=== PATIENT | female | born 1975 | race Caucasian/White ===

== ENCOUNTER → 2017-06-08 | Outpatient (CLI) | payer OTHER ==
[~2017-06-08] MED LIST: GADOBUTROL 10 ML VIAL IVP ONE
== END ==
LOC: FIMAGING 18:43
PROVIDERS: ATTEND Physician Assistant
DX: E23.6 Other disorders of pituitary gland (principal); J32.9 Chronic sinusitis, unspecified
CPT/HCPCS: A9585

== ENCOUNTER → 2017-07-02 | Outpatient (CLI) | payer OTHER | LOC: FIMAGING 09:49 | PROVIDERS: ATTEND Otolaryngology | DX: J32.9 Chronic sinusitis, unspecified (principal); J34.2 Deviated nasal septum; J34.89 Other specified disorders of nose and nasal sinuses; Z98.890 Other specified postprocedural states ==

== ENCOUNTER 2017-08-04 05:47 | Day surgery (SDC) | payer OTHER ==
[2017-08-04] MEDS ORDERED: LR 1,000 ML IV ONE (05:55)
[2017-08-04] MEDS ORDERED: LIDOCAINE 1% 2 ML INJ ID PRN (05:55)
[2017-08-04] MEDS ORDERED: LIDO/EPI 2%** Not for Epidural 20 ML MDV ONE (07:08)
[2017-08-04] MEDS ORDERED: ALBUTEROL 60 PUFFS/8 GM MDI IH PRN (07:08)
[2017-08-04] MEDS ORDERED: MIDAZOLAM 2 MG/2 ML VIAL IVP ONE (07:08)
[2017-08-04] MEDS ORDERED: BACITRACIN ZINC 14.2 GM OINTTUBE TP ONE (07:08)
[2017-08-04] MEDS ORDERED: METHYLENE BLUE 0.5% 50 MG/10 ML AMP ONE (07:09)
[2017-08-04] MEDS ORDERED: EPINEPHrine 30 MG/30 ML MDV (0.1 MG/0.1 ML) ONE (07:09)
--- NOTE | 2017-08-04 07:14 | PDANEPAE ---
ANE History of Present Illness 41 year old with sinus obstruction ANE Past Medical History - Cardiovascular History Hx Hypertension: No Hx Arrhythmias: No Hx Chest Pain: No Hx Coronary Artery / Peripheral Vascular Disease: No Hx CHF / Valvular Disease: No Hx Palpitations: No - Pulmonary History Hx COPD: No Hx Asthma/Reactive Airway Disease: Yes Hx Recent Upper Respiratory Infection: Yes Hx Oxygen in Use at Home: No Hx Sleep Apnea: No Sleep Apnea Screening Result - Last Documented: Negative Pulmonary History Comment: URI X 2 SINCE 03/2017. CURRENT ONE IS BEGINNING TO RESOLVE - Neurologic History Hx Cerebrovascular Accident: No Hx Seizures: No - Endocrine History Hx Diabetes: No - Renal History Hx Renal Disorders: No - Liver History Hx Hepatic Disorders: No - Neurological & Psychiatric Hx Hx Neurological and Psychiatric Disorders: Yes Neurological / Psychiatric History Comment: ANXIETY - Cancer History Hx Cancer: No - Congenital Disorder History Hx Congenital Disorders: No - GI History Hx Gastrointestinal Disorders: Yes Gastrointestinal History Comment: INTERMITTENT HEARTBURN HAS PRN RX - Other Health History Other Health History: REMVL PITUTIARY TUMOR 09/2016 RESIDUALLY HAS AFFECTED VISION. VISION WORSE ON LT. - Chronic Pain History Chronic Pain: Yes (SINUS PRESSURE FROM SCAR TISSUE) - Surgical History Prior Surgeries: REMVL PITUTARY TUMOR [facility]. BSO 11/2016. X3 ANE Review of Systems Review of Systems: Pt with mild URI sx, occ cough, nonproductive, no fever or chills - Exercise capacity METS (RN): 4 METS ANE Patient History - Allergies Allergies/Adverse Reactions: No Known Allergies Allergy (Unverified 07/29/17 10:29) - Home Medications Home medications: home medication list seen and reviewed Home Medications: Cymbalta DAILY06 07/29/17 [Last Taken 08/04/17 05:15] Proair Hfa PRN 07/29/17 [Last Taken Unknown] TOPIRAMATE BID 07/29/17 [Last Taken 08/04/17 05:15] Xanax 1 MG (*) TID 07/29/17 [Last Taken 08/04/17 05:15] - NPO status NPO Status: no food or drink >8 hours NPO Since - Liquids (Date): 08/03/17 NPO Since - Liquids (Time): 21:30 NPO Since - Solids (Date): 11/21/17 NPO Since - Solids (Time): 21:30 - Anes Hx Anes Hx: no prior problems - Smoking Hx Smoking Status: Former smoker - Alcohol Use Alcohol Use: Rarely - Family Anes Hx Family Anes Hx: none ANE Labs/Vital Signs - Vital Signs Blood Pressure: 116/83 Heart Rate: 90 Respiratory Rate: 16 O2 Sat (%): 95 Height: 162.56 cm Weight: 65.771 kg ANE Physical Exam - Airway Neck exam: FROM Mallampati Score: Class 1 Mouth exam: normal dental/mouth exam - Pulmonary Pulmonary: no respiratory distress, clear to auscultation - Cardiovascular Cardiovascular: regular rate and rhythym - ASA Status ASA Status: II ANE Anesthesia Plan Anesthesia Plan: general endotracheal anesthesia
[2017-08-04] MEDS ORDERED: ALBUTEROL 200 PUFFS/18 GM MDI IH ONE (07:15)
[2017-08-04] MEDS ORDERED: ceFAZolin 2 GM/SWFI 20 ML SYR IVP ONE (07:18)
[2017-08-04] MEDS ORDERED: ceFAZolin 2 GM/SWFI 2 GM/20 ML SYR IVP ONE (07:21)
--- NOTE | 2017-08-04 07:21 | PDHPUP ---
History & Physical Update H&P update statement: This history and physical update is based on an assessment of the patient which was completed after admission or registration (within 24 hours), but prior to the surgery/procedure. H&P update: no change in patient's condition since H&P completed
[2017-08-04] MEDS ORDERED: PROPOFOL 200 MG/20 ML VIAL ONE (07:45)
[2017-08-04] MEDS ORDERED: fentaNYL 100 MCG/2 ML INJ ONE ×3 (07:45→10:39)
[2017-08-04] MEDS ORDERED: LIDOCAINE 2% 5 ML SDV ONE (07:47)
[2017-08-04] MEDS ORDERED: ROCURONIUM 50 MG/5 ML VIAL ONE (07:47)
[2017-08-04] MEDS ORDERED: OXYMETAZOLINE 30 ML NASAL SPRAY ONE (07:52)
[2017-08-04] MEDS ORDERED: ALBUTEROL 3 ML DEYVIAL IH PRN (09:45)
[2017-08-04] MEDS ORDERED: ONDANSETRON 4 MG/2 ML VIAL IVP PRN (09:45)
[2017-08-04] MEDS ORDERED: NALOXONE HCL 0.4 MG/ML INJ IVP PRN (09:45)
--- NOTE | 2017-08-04 10:06 | POSTANESTH ---
Post Anesthetic Evaluation Cardiovascular Status: Normal, Stable Respiratory Status: Normal, Stable Level of Consciousness/Mental Status: Can Participate in Eval, Mildly Sleepy, Arousable Pain Control: Adequate, Prn Tx Ordered Nausea/Vomiting Control: Adequate, Prn Tx Ordered Complications Possibly Related to Anesthesia: None Noted
[2017-08-04] MEDS: fentaNYL 100 MCG/2 ML INJ IVP PRN ×4 (10:07→11:05)
--- NOTE | 2017-08-04 10:12 | POSTOPPROG ---
Post Op Note Date of Operation: 08/04/17 Surgeon: Marquita Green Anesthesiologist: Denis Pennington Anesthesia: GET(General Endotracheal) Pre-op Diagnosis: nasal obstruction Procedure: synechiae release R, septoplasty, SMR turbs Findings: DNS R, scarring bt septum and LNW, ITH B Inf/Abcess present in the surg proc area at time of surgery?: No EBL: Minimal Complications: none apparent
[2017-08-04 11:14] VITALS: RESP 18
[2017-08-04 11:36] VITALS: PULSE 103; TEMP 98.6
[2017-08-04 11:50] VITALS: BP 127/88; O2SAT 92
--- NOTE | 2017-08-10 04:58 | GOP ---
[f rep st] OPERATIVE REPORT DATE OF OPERATION: 08/04/2017 SURGEON: Marquita Green MD ANESTHESIA: General. PREOPERATIVE DIAGNOSIS: 1. Nasal obstruction. 2. Deviated nasal septum to the right. 3. 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 4. Previous trans-septal approach for pituitary tumor. POSTOPERATIVE DIAGNOSIS: 1. Nasal obstruction. 2. Deviated nasal septum to the right. 3. 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 4. Previous trans-septal approach for pituitary tumor. PROCEDURE PERFORMED: 1. Endoscopically assisted septoplasty. 2. Submucous resection of the inferior turbinates bilaterally. 3. Intranasal synechiae lysis on the right. FINDINGS: The patient was found to have a significantly deviated septum to the right with an adhesio n between the septum and the lateral nasal wall as well as the inferior turbinates. She also had dyllan e more adhesions between the middle turbinate and superior turbinate as well as the septum further ford periorly and posteriorly that were lysed as well. ESTIMATED BLOOD LOSS: Minimal. INDICATIONS: Ana is a very pleasant woman who has a history of a pituitary adenoma and underwent a poplexy and had an urgent transseptal approach for decompression of this almost a year ago. She stat es that since the surgery she has not been able to breathe through the right side of her nose and was having significant issues with nasal obstruction. On exam, she was found to have the above-noted fi ndings and it was felt that she would benefit from surgery. DESCRIPTION OF PROCEDURE: The patient was first seen in the preoperative area where informed consent was obtained. She was then brought back to the operating room where Anesthesia sedated and intubate d her. The bed was turned 90 degrees and she was prepped and draped in the normal fashion. I jayshree webster used a 0-degree scope to evaluate the nasal cavity bilaterally, noting the significant deviated s eptum to the right as well as the adhesions. I then used 2% lidocaine with 1:100,000 epinephrine and injected about 6 mL of this into the septum on both sides as well as the head of the inferior turbin ates and around the adhesions laterally. Once this had sufficient time to act, a 15-blade was used, after visualizing the lysis with the anterior rhinoscopy, and lysis of adhesions between the septum a nd lateral nasal wall inferiorly was performed. Once this was done, I then made a left-sided hemitra nsfixion incision with a 15-blade and then a caudal elevator was used to elevate a sub mucoperichondr ial flap to about 1 cm posterior to the bony cartilaginous junction. Once this was done, the bony ca rtilaginous junction was dislocated using a caudal instrument and then the flap was elevated on the r ight side, thereby isolating the bone more posteriorly. A double-action cutting rongeur was used to remove some of this bone and then was used under direct visualization to make an incision from posterior to anterior and superior to inferior, thereby creating a square of cartilage. This wa s released from the opposing mucoperichondrial flap on the right side and then the cartilage was christina ramiro as a whole. I did take care to leave at least a 10 mm strut caudally and dorsally. Once this wa s done, I then used a 0-degree scope through the hemitransfixion incision and held my flap elevation more posteriorly on both sides. Again, a Andrez-Cut as well as a double-action rongeur were used to rem ove anymore obstructing bone. She had a large spur to the left, more posteriorly and the caudal was used to elevate this off the flap and this was removed. She still had a small bony spur coming to th e left off the maxillary crest, so a 2 and 3 mm osteotome was used to gently remove this from the und erlying maxillary crest and this was removed as a whole. Once this was done, all instruments were re moved from the hemitransfixion incision and then the flap was reapproximated. The 0-degree scope was used on both sides to evaluate the nasal cavity. On the left she was significantly more patent and on the right she was significantly more patent, especially anteriorly. Posteriorly, she had a small synechiae between the middle turbinate and the septum as well as more posteriorly between the superio r turbinate and the septum. A sickle knife was used to release this synechiae under visualization us ing a 0-degree scope. After this was done, I could see her prior right sphenoid myotomy and a signif icant amount of secretions were suctioned from this, but otherwise it looked good. At this point, 5- 0 plain gut on a Jesus Manuel needle was used to place quilting sutures through and through the septum. A 4 -0 chromic was used to close the hemitransfixion incision in an interrupted fashion. Once this was d one, I then infractured the inferior turbinates bilaterally using a [employer]. Under direct visualizatio n with the scope, a small stab incision was made with the turbinate blade and the submucous resection of the inferior turbinates was done along the length of the inferior turbinates. The blade was christina ramiro and I did the same thing on the right side. Both turbinates were outfractured using hair assistant in strument. At the very end of the procedure a 0-degree scope was used to visualize the right posterio r aspect of the inferior turbinate on both sides and it was slightly enlarged, so suction cautery at a limited intermediate setting was used to gently cauterize the very posterior portion of the inferio r turbinates, which shrunk this down well. Once this was done, all instruments were removed. The na [place] cavity was irrigated out copiously with normal saline and suctioned clear. Two Mahoney splints, wh ich were cut to size, were placed along either side of the septum and sutured into place using a 3-0 Prolene. The patient was then turned back over to Anesthesia where she was awakened, extubated, and taken to the PACU in stable condition. There were no complications. She tolerated the procedure wel l and all instrument and pledget counts were correct. COMPLICATIONS: None. /[id number]/MODL
== END 2017-08-04 11:38 | disposition home or self-care (01) ==
LOC: FSGY 05:47
PROVIDERS: ATTEND Otolaryngology
PROC: 09TL8ZZ Resection of Nasal Turbinate, Via Natural or Artificial Opening Endoscopic (ICD-10-PCS; principal; 2017-08-04 07:15)
PROC: 09QM4ZZ Repair Nasal Septum, Percutaneous Endoscopic Approach (ICD-10-PCS; principal; 2017-08-04 07:15)
DX: J34.89 Other specified disorders of nose and nasal sinuses (principal); J34.2 Deviated nasal septum; J45.909 Unspecified asthma, uncomplicated; F32.9 Major depressive disorder, single episode, unspecified
CPT/HCPCS: J0171; J0690; J2250; J2704; J3010; Q9968

== ENCOUNTER 2017-09-16 11:15 | Inpatient (IN) | payer OTHER ==
--- NOTE | 2017-09-16 11:31 | EDPHY ---
H & P Smoking Status: Former smoker Time Seen by Provider: 09/16/17 11:29 HPI/ROS: CHIEF COMPLAINT: Headache HISTORY OF PRESENT ILLNESS: 41-year-old female with a history of pituitary tumor presents with a 2 week history of headache. She underwent a pituitary tumor resection 1 year ago. and a septoplasty on August 04, [address] Snowden. She was doing well until 2 weeks ago, when she developed a persistent and severe headache. The headache is constant, relieved somewhat by Tylenol and by lying supine. Associated with blurry vision, left greater than right. Onset of forehead swelling 2 days ago. No recent URI symptoms or fever. She was seen in the office by Dr. Snowden just prior to arrival and was sent here for MRI of the brain. REVIEW OF SYSTEMS: Constitutional: No fever, no chills ENT: No sore throat Respiratory: No cough, no shortness of breath Cardiac: No chest pain Gastrointestinal: No nausea, no vomiting, no abdominal pain Genitourinary: no dysuria Musculoskeletal: No leg pain or swelling Skin: No rash Neurological: no numbness, no weakness Psychiatric: No depression (Macy Hollis) Past Medical/Surgical History: Pituitary tumor Septoplasty (Macy Hollis) Social History: (Macy Hollis) Physical Exam: General Appearance: Alert, pleasant Eyes: Pupils equal and round, no conjunctival pallor or injection, EOMI ENT, Mouth: Mucous membranes moist Neck: Normal inspection Respiratory: Lungs are clear to auscultation Cardiovascular: Regular rate and rhythm Gastrointestinal: Abdomen is soft and nontender Neurological: Alert, oriented x3, cranial nerves II through XII intact, motor 5 /5, sensory intact to light touch, gait not assessed Skin: Warm and dry, no rash Extremities: Nontender, no pedal edema Psychiatric: Mood and affect normal (Macy Hollis S) Constitutional: Initial Vital Signs Temperature (C) 36.9 C 09/16/17 11:22 Heart Rate 98 09/16/17 11:22 Respiratory Rate 18 09/16/17 11:22 Blood Pressure 105/73 09/16/17 11:22 O2 Sat (%) 95 09/16/17 11:22 O2 Delivery Mode Room Air Allergies/Adverse Reactions: No Known Allergies Allergy (Verified 09/16/17 11:18) Home Medications: Medication Instructions Recorded ALPRAZolam [Xanax 1 MG (*)] 1 mg PO TID 09/16/17 Acetaminophen [Tylenol ES 500 mg 1,000 mg PO Q6 09/16/17 (*)] Beclomethasone Qvar 80 [Qvar 80 2 puffs IH TID 09/16/17 (*)] DULoxetine [Cymbalta 30 MG (*)] 30 mg PO DAILY 09/16/17 Herbals/Supplements -Info Only 1 ea PO DAILY 09/16/17 Topiramate [Topamax 25MG (*)] 25 mg PO BID 09/16/17 Zolpidem Tartrate [Ambien 5MG (*)] 5 mg PO HS 09/16/17 Medical Decision Making ED Course/Re-evaluation: 1500: Patient is signed out to me at change of shift by Dr. Hollis. Patient is awaiting MRI. 1545: I discussed the case with Dr. Page. The MRI shows enlarging lesion in the pituitary gland. It is now measuring 11 x 13 x 10 mm. 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 No definite hemorrhage. Dr. Snowden was paged. 16 20: I discussed case Dr. Snowden. She will discussed the case with Dr. Early from neurosurgery. Dr. Snowden called back and stated that Dr. Early did not feel the patient's headaches was secondary to the pituitary finding on MRI. Dr. Martinez felt that we should continue to work up the patient and have the patient follow up as an outpatient with Dr. Early for her MRI findings. She had no other further suggestions at this time. I went and re-evaluated the patient. I discussed the results with the patient. I answered all her questions. She had no focal neurologic deficits on exam. She continued to have a significant headache. It is noted that she received multiple doses of pain medication in the emergency department. I do not feel the patient will tolerate discharged with her ongoing headache. Patient agreed to be admitted. To further workup the patient's ongoing headache I ordered an MR venogram. I discussed this with Dr. Shawn Montiel. I subsequently discussed the case with Dr. Devine. He will admit the patient. (Zoë Tran) This patient presents with a severe and subacute headache, of 2 weeks duration. Neurologic exam is normal. MRI of the brain ordered. The patient required multiple doses of IV morphine to control her pain. MRI is pending at shift change. She may require admission for ongoing headache. I do not feel that lumbar puncture is indicated, given no recent illness, no fever and no leukocytosis. (Macy Hollis) Differential Diagnosis: My differential includes but is not limited to pituitary adenoma, hemorrhage, CVA, dissection, subarachnoid hemorrhage, subdural hematoma, epidural hematoma, sinus thrombosis (Zoë Tran) - Data Points Laboratory Results: Laboratory Results 09/16/17 11:35 09/16/17 11:35 Medications Given: Acetaminophen (Tylenol) 650 mg PO Q4HRS PRN PRN Reason: Pain, Mild/Fever, Can Take PO Stop: 03/15/18 20:40 Last Admin: 09/17/17 06:24 Dose: 650 mg Albuterol (Proventil Neb) 3 ml IH Q6HRS PRN PRN Reason: Wheezing Stop: 03/16/18 05:30 Last Admin: 09/16/17 22:30 Dose: 3 ml Alprazolam (Xanax) 1 mg PO TID CRISTINA Stop: 03/15/18 21:59 Last Admin: 09/17/17 08:35 Dose: 1 mg Beclomethasone Dipropionate (Qvar 80) 2 puffs IH TID CRISTINA Stop: 03/15/18 21:59 Last Admin: 09/17/17 07:33 Dose: 2 puffs Diphenhydramine HCl (Benadryl) 25 - 50 mg PO Q6HRS PRN PRN Reason: Itching Stop: 03/15/18 22:21 Last Admin: 09/17/17 08:32 Dose: 50 mg Duloxetine HCl (Cymbalta) 30 mg PO DAILY CRISTINA Stop: 03/16/18 08:59 Last Admin: 09/17/17 08:35 Dose: 30 mg Hydromorphone HCl (Dilaudid) 0.5 - 1 mg IVP Q4HRS PRN PRN Reason: Pain, Severe Unable to Take PO Stop: 09/26/17 20:40 Last Admin: 09/17/17 07:37 Dose: 1 mg Methocarbamol (Robaxin) 1,000 mg PO QID PRN PRN Reason: Headache Stop: 03/15/18 20:59 Last Admin: 09/17/17 02:42 Dose: 1,000 mg Oxycodone HCl (Oxycodone Ir) 5 - 10 mg PO Q3HRS PRN PRN Reason: Pain, Severe Able to Take PO Stop: 09/26/17 20:40 Last Admin: 09/17/17 08:35 Dose: 10 mg Topiramate (Topamax) 25 mg PO BID CRISTINA Stop: 03/15/18 20:59 Last Admin: 09/17/17 08:35 Dose: 25 mg Zolpidem Tartrate (Ambien) 5 mg PO HS CRISTINA Stop: 03/15/18 20:59 Last Admin: 09/16/17 21:06 Dose: Not Given Discontinued Medications Hydromorphone HCl (Dilaudid) 0.5 mg IVP EDNOW ONE Stop: 09/16/17 18:17 Last Admin: 09/16/17 18:17 Dose: 0.5 mg Sodium Chloride (Ns) 1,000 mls @ 0 mls/hr IV ONCE ONE; Wide Open PRN Reason: Protocol Stop: 09/16/17 11:45 Last Admin: 09/16/17 11:44 Dose: 1,000 mls Morphine Sulfate (Morphine) 6 mg IVP EDNOW ONE Stop: 09/16/17 11:42 Last Admin: 09/16/17 11:45 Dose: 6 mg Morphine Sulfate (Morphine) 4 mg IVP EDNOW ONE Stop: 09/16/17 12:18 Last Admin: 09/16/17 12:21 Dose: 4 mg Morphine Sulfate (Morphine) 4 mg IVP EDNOW ONE Stop: 09/16/17 15:13 Last Admin: 09/16/17 15:17 Dose: 4 mg Ondansetron HCl (Zofran) 4 mg IVP EDNOW ONE Stop: 09/16/17 11:42 Last Admin: 09/16/17 11:45 Dose: 4 mg Ondansetron HCl (Zofran) 4 mg IVP ONCE ONE Stop: 09/16/17 19:17 Last Admin: 09/16/17 19:19 Dose: 4 mg Departure - Departure Disposition: [facility] Acute Clinical Impression: Headache Qualifiers: Headache type: unspecified Headache chronicity pattern: acute headache Intractability: intractable Qualified Code(s): R51 - Headache Condition: Good
[2017-09-16] MEDS ORDERED: ONDANSETRON 4 MG/2 ML VIAL IVP ONE ×2 (11:41→19:16)
[2017-09-16] MEDS ORDERED: NS 1,000 ML IV ONE (11:44)
[2017-09-16 11:46] LABS: PLATELET COUNT 400 10^3/uL (150-400)
[2017-09-16] MEDS ORDERED: GADOBUTROL 10 ML VIAL IVP ONE (12:20)
[2017-09-16] MEDS ORDERED: HYDROmorphONE/DILAUDID 1 MG/ML INJ ONE (18:14)
[2017-09-16] MEDS ORDERED: HYDROmorphONE/DILAUDID 2 MG/ML INJ IVP ONE (18:16)
[2017-09-16] MEDS ORDERED: ONDANSETRON 4 MG/2 ML VIAL ONE (19:17)
[2017-09-16] MEDS ORDERED: ONDANSETRON 4 MG/2 ML VIAL IVP PRN (20:41)
[2017-09-16] MEDS: BECLOMETHASONE QVAR 80 MDI IH SCH (20:53)
[2017-09-16] MEDS: TOPIRAMATE 25 MG TAB PO SCH (21:04)
[2017-09-16] MEDS: HYDROmorphONE/DILAUDID 1 MG/ML INJ IVP PRN (21:04)
[2017-09-16] MEDS: oxyCODONE IR 5 MG TAB PO PRN (21:05)
[2017-09-16] MEDS: METHOCARBAMOL 500 MG TAB PO PRN (21:05)
[2017-09-16] MEDS: ALPRAZolam 1 MG TAB PO SCH (21:06)
[2017-09-16] MEDS: ZOLPIDEM TARTRATE 5 MG TAB PO SCH (21:06)
--- NOTE | 2017-09-16 22:15 | GHP ---
[f rep st] HISTORY AND PHYSICAL DATE OF ADMISSION: 09/16/2017 CHIEF COMPLAINT: Headache. HISTORY OF PRESENT ILLNESS: This is a 41-year-old female, who has a history of pituitary adenoma josep t was resected about a year ago. She had some scarring in nasal septum area which prevented her from breathing on her right side. This was repaired by Dr. Green on August 04. She had been doing w ell until about 2 weeks ago when she developed significant headache. Headache is constant and throbb ing and is in the upper part of her head. It feels actually more pressure like and she feels some fu llness in her forehead. She actually feels that her forehead is bulging a little bit as well, and th at friends can notice that. She says the headaches are better when she lies down. She is sensitive to light. No nausea, vomiting. She is sensitive to noise. She has never had headaches before. She is noting also some neck tension. She states that she had almost identical symptoms when her pituitary adenoma was 1st diagnosed. Her symptoms resolved with surgery, and now returned and they seem to actually be more severe currently. She is admitted. She is also complaining of blurry vision, worse on the left. She did see ENT this morning who sent her over for an MRI. REVIEW OF SYSTEMS: A 10-point review of systems was obtained and was negative. PAST MEDICAL HISTORY: 1. Pituitary tumor, as above. 2. Septoplasty and scar tissue removal recently. 3. Asthma. MEDICATIONS: Reviewed. SOCIAL HISTORY: No smoking or alcohol, is . FAMILY HISTORY: No pituitary adenoma in the family. PHYSICAL EXAMINATION: VITAL SIGNS: Afebrile, blood pressure is 147/78, heart rate 91, oxygen satura tion 95% on room air. GENERAL: Patient is well developed, no apparent distress. HEENT: Nonicteric sclerae. Extraocular muscles intact. Moist mucous membranes. There is a little bit of fullness in her forehead area. NECK: Some muscle tension on the left side, but it is supple. LUNGS: Good eff ort. Clear to auscultation bilaterally. CARDIOVASCULAR: Regular rate and rhythm. No murmurs or ga llops. ABDOMEN: Positive bowel sounds. Soft, nontender, nondistended. No hepatosplenomegaly. EXT REMITIES: No clubbing, or cyanosis, or edema. SKIN: Without rash, dry, intact. NEURO: Alert, jose alejandro ented x3. 5/5 strength in all 4 extremities. She does have some loss of peripheral vision, more on the right than the left. PSYCH: Normal mood and affect. LABS: CBC is normal. Chemistries normal. IMAGING: MRI does show increase of her pituitary adenoma as compared to May, and is now 11 x 1 3 x 10 mm. Mild chronic sinus issues are viewed. ASSESSMENT: This is a 41-year-old female with a complicated surgical history, presenting with headac he. PLAN: 1. Headache: The patient does state these symptoms are very similar to when she first presented wit h pituitary adenoma. Dr. Blanco, a neurosurgeon, and he was called and believes that these symptoms a re probably not from her pituitary adenoma. However, these seem to be the same symptoms as her previ ous presentation. The full look makes me think more of some sinus issues, although, there could be s ome problem with sinus issues related to her recent surgery, but MRI only showed some mild sinusitis. I guess one could consider a dedicated CT scan, but I am not sure that would add anything. it is a lso interesting that her headaches seem to get better with lying down. I do not know if a CSF leak i s possible from the recent surgery. Although she does have some elements that are migrainous, I do n ot think that these are migraine headaches. Other possibilities could be muscle tension from her nec k causing headaches. Plan right now would be symptomatic control. I will talk to Neurosurgery tomor row as well as ENT. We will also probably get Neurology's opinion tomorrow. 2. Asthma: Stable. /[id number]/MODL
[2017-09-16] MEDS: ALBUTEROL 3 ML DEYVIAL IH PRN (22:30)
[2017-09-16] MEDS ORDERED: ALBUTEROL 3 ML DEYVIAL ONE (22:30)
[2017-09-16] MEDS: diphenhydrAMINE 25 MG CAP PO PRN (22:38)
[2017-09-17] MEDS: ACETAMINOPHEN 325 MG TAB PO PRN ×2 (00:37→06:24)
[2017-09-17] MEDS: oxyCODONE IR 5 MG TAB PO PRN ×4 (00:37→14:29)
[2017-09-17] MEDS: METHOCARBAMOL 500 MG TAB PO PRN ×2 (02:42→14:29)
[2017-09-17] MEDS: HYDROmorphONE/DILAUDID 1 MG/ML INJ IVP PRN ×3 (02:42→12:13)
[2017-09-17] MEDS: diphenhydrAMINE 25 MG CAP PO PRN ×2 (02:59→08:32)
[2017-09-17] MEDS: BECLOMETHASONE QVAR 80 MDI IH SCH ×3 (07:33→21:12)
[2017-09-17] MEDS: TOPIRAMATE 25 MG TAB PO SCH (08:35)
[2017-09-17] MEDS: DULoxetine 30 MG CAP PO SCH (08:35)
[2017-09-17] MEDS: ALPRAZolam 1 MG TAB PO SCH ×3 (08:35→22:21)
--- NOTE | 2017-09-17 09:50 | NEUROPROG ---
Assessment: [id number] Neurology Consult Note CC: Dr. Simone Watson consulted neurology for headache, macroadenoma. Results placed in EMR for his review. HPI: Pt has a pituitary adenoma that was resected 1 year ago. On August 04, 2017 she had some scarring in her nasal septum area which prevented her from breathing so it was repaired by Dr. Snowden. The patient had been doing well until 2 weeks ago when she developed a significant headache. She reported the headache was changed with lying down (Positional). She has photophobia but no N /V. She denied prior history of headaches. She reported these headaches are similar to headaches she had when the pituitary adenoma was first diagnosed but were resolved with surgery. She had an MRI that showed her residual macroadenoma has grown in size. I initially saw the patient on 09/17/17. She had a normal neurologic exam but had a continual headache and blurry vision. PMHx: macroadenoma resection 2017, nasal septal repair 08/04/17, asthma SHx: no smoking FHx: no pituitary macroadenoma ROS: No acute fever, total vision loss, active severe chest pain, respiratory failure, total body severe rash, total bowel/bladder incontinence, psychosis, active seizures, or active bleeding O: VS reviewed General: Alert Eyes: Fundoscopic exam not able to visualize optic disks CV: Heart RRR, no murmur, no carotid bruit Lungs: Clear to auscultation bilaterally, no rhonci or rales Neuro: - Mental: . Oriented x person/place/date . concentration appears normal . speech fluency/comprehension normal . memory appears normal . fund of knowledge appear intact - Cranial Nerves: . II: PERRL, VFFTC . III/IV/: EOMI, no nystagmus, normal smooth pursuits, no Ptosis . V: facial sensation intact to LT . VII: face symmetric to eye closure and smile . VIII: hearing intact to conversation . IX/X: uvula raises symmetrically . XI: SCM 5/5 B/L strength . XII: tongue protrudes midline w/nl strength - Motor: . Tone: normal tone in all 4 extrem . Strength: no pronator drift, strength 5/5 throughout (B/L delt, bic, tri, hand r d intern, hf/he, df/pf) - Reflexes: B/L bic/BR/patella 2/4 - Sensory: all 4 extrem intact to light touch - Coord: [id number]-md-[id number] wnl, JODY wnl, rqkc-ut-yrbi wnl - Gait: deferred Labs: 09/16/17- CBC wnl, Chem CO2 19L Rads: 09/16/17- Brain MRI w/ and w/o con: enlarging lesion in pituitary gland now measuring [id number] mm, most likely representing increasing residual pituitary macroadenoma, no definite hemorrhage, mild chronic sinus-related changes, otherwise normal brain (I personally visualized the images on 09/17/17) 09/16/17- Brain MRV: unremarkable Assessment: 1. Positional Headache in setting of enlarging pituitary macroadenoma: Normal neurologic exam on 09/17/17. Pt has a brain MRI on 09/16/17 that showed an enlarging pituitary macroadenoma and the patient has a positional headache for 2 weeks that she says is very similar to previous headache she had attributed to the pituitary macroadenoma when it was first diagnosed (prior to initial resection). The history is concerning for a symptomatic brain tumor. Recommend obtaining neurosurgery evaluation. Plan: - Recommend neurosurgery consult to determine if enlarging macroadenoma is responsible for worsening headache Objective: Vital Signs Temp Pulse Resp BP Pulse Ox 36.8 C 82 16 112/80 95 09/17/17 07:54 09/17/17 07:54 09/17/17 07:54 09/17/17 07:54 09/17/17 07:54 09/16/17 09/17/17 09/18/17 05:59 05:59 05:59 Intake Total 2000 Output Total 1100 Balance 900 Allergies/Adverse Reactions: No Known Allergies Allergy (Verified 09/16/17 11:18)
--- NOTE | 2017-09-17 10:18 | HOSPPROG ---
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 Path positive for PRL, but negative labs. Rechecking MRI here shows enlarging pituitary mass, negative PRL today -Prior hormone labs negative. Spoke with her Curtain Mender, Dr. Muniz, no further labs needed now #Intractable MCKEON/neck pain: been present since Sep 01. Improved with Dex and Toradol. Will start pred burst tomorrow and Nortriptyline per Neuro recs -will taper off Topamax over several weeks #Diet: regular #DVT ppx: low-risk #Disp: warrants inpatient admission for intractable MCKEON/N, requires IV opioids/ steroids. Will DC in morning if improved Time spent on visit 70 min bedside with pt, reviewing prior imaging, labs and d/ w Dr. Muniz and Bella Subjective: headache and neck pain still 8/10. No weakness or slurred speech. Blurry vision for several weeks Objective: Vital Signs Temp Pulse Resp BP Pulse Ox 36.8 C 82 16 112/80 95 09/17/17 07:54 09/17/17 07:54 09/17/17 07:54 09/17/17 07:54 09/17/17 07:54 09/16/17 09/17/17 09/18/17 05:59 05:59 05:59 Intake Total 2000 Output Total 1100 Balance 900 - Time Spent With Patient Time Spent with Patient: greater than 35 minutes Time Spent with Patient: Greater than 35 minutes spent on this patients care, greater than 50% of time spent counseling, educating, and coordinating care regarding the above mentioned plan. - Physical Exam Constitutional: no apparent distress Eyes: PERRL Ears, Nose, Mouth, Throat: moist mucous membranes, hearing normal Cardiovascular: regular rate and rhythym, no murmur, rub, or gallop Respiratory: no respiratory distress, no rales or rhonchi Gastrointestinal: normoactive bowel sounds, soft, non-tender abdomen Genitourinary: no bladder fullness, No portillo in urethra Skin: warm Musculoskeletal: full muscle strength Neurologic: AAOx3, sensation intact bilaterally, CN II-XII Intact, No facial droop Psychiatric: interacting appropriately ICD10 Worksheet Patient Problems: Problems Problem Status Onset Headache Acute
[2017-09-17] MEDS ORDERED: DEXAMETHASONE 4 MG/ML VIAL IVP ONE (11:08)
[2017-09-17] MEDS: KETOROLAC 15 MG/1 ML SDV IVP SCH ×3 (11:19→23:48)
--- NOTE | 2017-09-17 13:27 | GCON ---
[f rep st] CONSULTATION DATE OF CONSULTATION: 09/17/2017 REASON FOR CONSULTATION: History of pituitary resection, readmitted with headaches, blurred vision. HOSPITAL COURSE, HISTORY AND MAJOR MEDICAL FINDINGS: The patient is a 41-year-old female, who is wel l known to Dr. Blanco for undergoing a transsphenoidal craniotomy for evacuation of blood and resectio n of her pituitary macroadenoma, for which she had apoplexy. Her prolactin was 36.5 at the time, ind icating that it was a prolactinoma. However, given her changes and apoplexy, did recommend resection at that time. She has been followed closely by both Dr. Blanco and Dr. Marquita Green. And she rece ntly underwent a new MRI which was reviewed by them, which did show some increase in growth. However , there was no compression of the optic chiasm. She presented to [facility] emergency room wi th irretractable headaches and neck pain that have been more predominant since September 01. Neurolog y was consulted, and they had concerns for this area being more symptomatic, given the return of her headaches. Upon talking to the patient, she does report that her headaches are somewhat positional, they are worse when she is standing up, and she has noticed some swelling of her frontal sinus, as we ll as some clear discharge from her nose. She states that the discharge from her nose is intermitten t and not reproducible or predictable. She does have some pain in her posterior neck. She denies an y fevers, nausea, vomiting. She does feel like she has been colder than usual, but denies any overt chills. She has continued to have some blurry vision, which she states has been worsening. She tyler es any complete loss of vision. REVIEW OF SYSTEMS: Review of systems is negative other than what is stated in the HPI. Please see p ertinent negatives, pertinent positives. PAST MEDICAL HISTORY: Significant for a pituitary tumor, pituitary transsphenoidal resection. Septo plasty and scar tissue removal done by Dr. rGeen. History of asthma. PAST SURGICAL HISTORY: Significant for her trans-sphenoidal resection, as well as her sinus surgery. ALLERGIES: No known drug allergies. HOME MEDICATIONS: Include Tylenol 500 mg 2 p.o. q.6 hours p.r.n. pain, Xanax 1 mg 1 p.o. three times daily, beclomethasone inhaler as needed three times daily, Cymbalta 30 mg 1 p.o. daily, Topamax 25 m g 1 p.o. twice daily, and Ambien 5 mg 1 p.o. at bedtime. SOCIAL HISTORY: Patient is . She denies smoking or any alcohol use. FAMILY HISTORY: Negative for any history of pituitary adenoma in her family. PHYSICAL EXAM: VITAL SIGNS: BP is 124/88, heart rate is 98, respiratory rate is 16. She is 92% on room air. Temperature is 36.7. GENERAL: The patient is in no acute distress. She is alert and jose alejandro ented x3. She answers questions appropriately, and affect is appropriate with situation. HEENT: Cr anial nerves 2-12 are grossly intact. She does have some blurry vision with her EOMIs with her perip heral visual alejandra. EXTREMITIES: She is a 5/5 and equal in her bilateral upper and bilateral lower extremities, including her deltoids, triceps, biceps, wrist flexors, extensors, interossei, intrinsi c steam shovel engineer, iliopsoas, hamstrings, quadriceps, plantar flexion, dorsiflexion, EHL. DIAGNOSTIC REVIEW: The patient underwent a brain MRI on 09/16/2017, which demonstrated an 11 x 13 x 10 mm pituitary macroadenoma with no definitive hemorrhage, which is enlarged from her prior imaging done approximately 6 months ago. She also underwent an MRA, which demonstrated no definitive evidenc e of thrombosis. ASSESSMENT AND PLAN: The patient is a 41-year-old female, who has previously undergone a trans-sphen oidal pituitary macroadenoma resection. That was found to be a prolactinoma. She has been followed by Dr. Muniz with Endocrinology, as well as Dr. Blanco and Dr. Green. This was discussed in detail with Dr. William Blacno, and he would like to further investigate her labs, making sure she has a rece nt prolactin level, to see if this would be amenable to treating with bromocriptine or other medical agent. We would also be in favor of Neurology aggressively treating the cause of her headaches. The patient has been having these for some time. The patient will be seen later today by Dr. Blanco. At this point, we would recommend a followup MRI in approximately 3 months to re-image her pituitary gl and. /[id number]/MODL
--- NOTE | 2017-09-17 14:32 | ASMTCMCOM ---
CM Note CM Note Notes: Chart reviewed. Patient admitted with persistent headaches. Prior pituitary tumor. Growing on exam. Dr. Blanco to see later today. No needs identified presently. Likely to dc home independently when medically stable. CM available should needs arise. Date Signed: 09/17/2017 02:32 PM Electronically Signed By:Jewell Ross RN
--- NOTE | 2017-09-17 14:59 | NEUROPROG ---
Assessment: It would be reasonable to add topamax 25 mg bid for headache control if additional medications are needed. Objective: Vital Signs Temp Pulse Resp BP Pulse Ox 36.7 C 98 16 124/88 H 92 09/17/17 11:53 09/17/17 11:53 09/17/17 11:53 09/17/17 11:53 09/17/17 11:53 09/16/17 09/17/17 09/18/17 05:59 05:59 05:59 Intake Total 2000 Output Total 1100 600 Balance 900 -600 Allergies/Adverse Reactions: No Known Allergies Allergy (Verified 09/16/17 11:18)
[2017-09-17] MEDS ORDERED: DEXAMETHASONE 4 MG/ML VIAL IVP PRN (16:29)
--- NOTE | 2017-09-17 17:29 | PDMN ---
Medical Necessity Medical necessity: Pt meets INPT criteria per MD as of 09/17/17 and MCG M-185 Headaches (intractable headache/neck pain requiring IV opioids/steroids; hx prolactinoma s/p resection with MRI showing enlarging pituitary mass).
[2017-09-17] MEDS: ONDANSETRON DISINTEGRATING 4 MG TAB PO PRN (20:47)
[2017-09-17] MEDS: ALBUTEROL 3 ML DEYVIAL IH PRN (21:10)
[2017-09-17] MEDS: ZOLPIDEM TARTRATE 5 MG TAB PO SCH (23:50)
[2017-09-18] MEDS: METHOCARBAMOL 500 MG TAB PO PRN ×3 (03:16→21:08)
[2017-09-18] MEDS: KETOROLAC 15 MG/1 ML SDV IVP SCH ×3 (05:33→17:45)
--- NOTE | 2017-09-18 07:48 | NEUSURGPN ---
Assessment/Plan: 41 yo female with h/o transphenoidal pituitary resection by Dr. Blanco with headaches New MRI brain: Enlarging lesion in the pituitary gland, now measuring 11 x 13 x 10 mm, most likely representing increasing residual pituitary macroadenoma without pressure on optic chiasm - Headache management per neurology. Improved this morning. Pituitary tumor not the cause of her headaches - recommend repeat MRI brain with and without contrast pituitary protocol in 3 months - ok to discharge per neurosurgery Subjective: Headache improved this morning and rated at a 3/10. Objective: Awake. Alert. PERRL. EOMI Facial expression symmetrical Speech fluent Moving all extremities - Physician Discussed Patient with Dr.: Blanco Neurosurgery Physical Exam - Vitals, I&O, Labs I and O 09/17/17 09/18/17 09/19/17 05:59 05:59 05:59 Intake Total 1780 Balance 1780 Intake: Oral (ml) 1780 Other: Intake Quantity Yes Sufficient Number of Voids Toilet 3 Vital Signs Temp Pulse Resp BP Pulse Ox 37.3 C 88 18 107/62 98 09/18/17 03:09 09/18/17 03:09 09/18/17 03:09 09/18/17 03:09 09/18/17 03:09 ICD10 Worksheet Patient Problems: Problems Problem Status Onset Headache Acute
[2017-09-18] MEDS: DULoxetine 30 MG CAP PO SCH (08:19)
[2017-09-18] MEDS: TOPIRAMATE 25 MG TAB PO SCH (08:20)
[2017-09-18] MEDS: ALPRAZolam 1 MG TAB PO SCH ×3 (08:20→21:55)
--- NOTE | 2017-09-18 08:29 | CPEKG ---
Heart Rate: 72 RR Interval: 833 P-R Interval: 124 QRSD Interval: 78 QT Interval: 412 QTC Interval: 451 P [place]: 54 QRS [place]: 39 T Wave [place]: 27 EKG Severity - NORMAL ECG - EKG Impression: SINUS RHYTHM Electronically Signed By: Sam Zambrano 18-Sep-2017 12:05:18
[2017-09-18] MEDS: BECLOMETHASONE QVAR 80 MDI IH SCH ×3 (08:33→22:56)
[2017-09-18 08:47] LABS: CREATINE KINASE 56 IU/L (0-156)
[2017-09-18] MEDS ORDERED: predniSONE 20 MG TAB PO ONE (08:56)
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
[2017-09-18] MEDS ORDERED: MAG HYDROX/AL HYDROX/SIMETH 30 ML UDCUP PO ONE (09:30)
[2017-09-18] MEDS ORDERED: HYOSCYAMINE SULFATE 0.125 MG TAB PO ONE (09:30)
[2017-09-18] MEDS ORDERED: LIDOCAINE 2% VISCOUS 15 ML UDCUP PO ONE (09:30)
[2017-09-18] MEDS: oxyCODONE IR 5 MG TAB PO PRN ×3 (11:58→21:08)
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
[2017-09-18] MEDS: ONDANSETRON DISINTEGRATING 4 MG TAB PO PRN ×2 (15:06→19:45)
[2017-09-18] MEDS ORDERED: BISACODYL 10 MG SUPP PR PRN (20:52)
[2017-09-18] MEDS ORDERED: MAGNESIUM HYDROXIDE 30 ML UDCUP PO PRN (20:52)
[2017-09-18] MEDS ORDERED: LACTULOSE 20 GM/30 ML UDCUP PO PRN (20:52)
[2017-09-18] MEDS ORDERED: POLYETHYLENE GLYCOL 3350 17 GM PKT PO PRN (20:52)
[2017-09-18] MEDS ORDERED: TOPIRAMATE 25 MG TAB PO SCH (21:00)
[2017-09-18] MEDS: SENNOSIDES/DOCUSATE SODIUM TAB PO SCH (21:08)
[2017-09-19] MEDS: KETOROLAC 15 MG/1 ML SDV IVP SCH ×2 (00:41→06:00)
[2017-09-19] MEDS: oxyCODONE IR 5 MG TAB PO PRN ×3 (01:15→10:02)
[2017-09-19] MEDS: ZOLPIDEM TARTRATE 5 MG TAB PO SCH (04:43)
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
[2017-09-19 08:08] VITALS: BP 112/67; RESP 16; TEMP 98.6; O2SAT 97
[2017-09-19] MEDS: METHOCARBAMOL 500 MG TAB PO PRN (08:40)
[2017-09-19] MEDS: DULoxetine 30 MG CAP PO SCH (08:41)
[2017-09-19] MEDS: TOPIRAMATE 25 MG TAB PO SCH (08:41)
[2017-09-19] MEDS: ALPRAZolam 1 MG TAB PO SCH (08:41)
[2017-09-19] MEDS: SENNOSIDES/DOCUSATE SODIUM TAB PO SCH (08:41)
--- NOTE | 2017-09-19 09:20 | NEUROPROG ---
Assessment: OK to discharge from neurology perspective. Call for any questions. Objective: Vital Signs Temp Pulse Resp BP Pulse Ox 37.0 C 73 16 112/67 97 09/19/17 08:00 09/19/17 08:00 09/19/17 08:00 09/19/17 08:00 09/19/17 08:00 09/18/17 09/19/17 09/20/17 05:59 05:59 05:59 Intake Total 1780 700 Balance 1780 700 Allergies/Adverse Reactions: No Known Allergies Allergy (Verified 09/16/17 11:18)
[2017-09-19] MEDS: BECLOMETHASONE QVAR 80 MDI IH SCH (09:36)
[2017-09-19 09:45] VITALS: PULSE 77
[2017-09-19] MEDS ORDERED: predniSONE 20 MG TAB PO SCH (09:45)
--- NOTE | 2017-09-19 14:07 | GDS ---
[f rep st] DISCHARGE SUMMARY DISCHARGE DIAGNOSES: 1. Acute on chronic headaches. 2. History of prolactinoma, status post resection by Dr. Blanco in 2017. 3. Chest pain. 4. Neck pain. 5. Constipation. HISTORY OF PRESENT ILLNESS: A 41-year-old female with a history of pituitary macroadenoma, who underwent transsphenoidal craniotomy for evacuation in September of 2015. Her prolactin at that time was 36.5, indicative of prolactinoma. She has been followed by Dr. Blanco, Dr. Green, and Dr. Muniz of [facility] as an outpatient. She was seen by Dr. Green on the day of admission and told her that she had been having intractable headaches and neck pain that had been more predominant since September 01. She stated the headaches were positional, worse when she was standing up, and had noticed some swelling of her frontal sinus. She complained of pain in her posterior left neck. No fevers, chills, or sweats. HOSPITAL COURSE BY PROBLEM: 1. Pituitary lesion: The patient underwent an MRI of the brain here that did show an enlarged lesion in the pituitary gland, now 11 x 13 x 10 mm. Underwent a prior resection a year ago by Dr. Blanco. He reviewed the imaging and at this time, he does not recommend surgery, given she has a normal prolactin level. I spoke with her primary real estate account executive, Dr. Muniz, who states that she underwent extensive hormone testing that has all been negative. Dr. Blanco recommends a repeat MRI brain with pituitary protocol in 3 months. She will follow up with Dr. Muniz as well. 2. Chronic headaches: MRI was negative for acute hemorrhage or large mass effect. Neurology was also consulted. The patient was previously on Topamax. We increased the evening dose to 50, so now she will be taking 25 in the morning and 50 at night. We will abort headaches in the short term with a pred burst. She did have improvement in her symptoms with Toradol and oxycodone. I provided only a few of these at discharge, as this is not the ideal management. She needs to follow up with her PCP. 3. Chest pain. This developed several days into her hospitalization. Troponin and EKG were negative. Suspect this was GERD related to multiple pills , as it did improve with a GI cocktail. 4. Possible melena. The patient reported having a dark stool on the day of discharge. Her H and H, and blood pressure remained stable here. She had endorsed taking Aleve and ibuprofen. Quite a bit prior to admission. I told her to monitor her stools. If this is persistent, she can follow up with her PCP and arrange for followup with GI. 5. Neck pain. Suspect this was musculoskeletal in nature. Neurology ordered a CT cervical spine, which was negative for acute fracture. It did have a small area of central perfusion affecting the anterior thecal sac at 3, 4 and 5. Recommend PT, massage, and heat. 6. Asthma. Resumed home meds. DISCHARGE MEDICATIONS: New medications: Robaxin, prednisone, and oxycodone, only 15 tabs, no refills. FOLLOWUP: 1. Dr. Blanco. 2. Dr. Muniz. 3. Dr. Green. 4. Dr. Coffey. PHYSICAL EXAMINATION: VITAL SIGNS: Temperature 37, blood pressure 112/67, heart rate in the 70s, respiratory rate 16, 97% on room air. GENERAL: Sitting up in bed, in no acute distress. HEENT: PERRLA. EOMI. Oropharynx clear. CV : Regular rate and rhythm. LUNGS: Clear. ABDOMEN: Soft, nontender, nondistended. : No [place]. MUSCULOSKELETAL: Moving all 4 extremities. NEURO: 2 through 12 intact. PSYCH: Alert and oriented x3. Anxious. Time spent on discharge: Greater than 60 minutes in counseling of patient, medications, followup plan, and coordinating discharge. /[id number]/MODL MTDD
== END 2017-09-19 11:30 | disposition home or self-care (01) | DRG 103 ==
LOC: F3N 19:29 → OBSVTOIN 09-17 16:28
PROVIDERS: ADMIT Internal Medicine; ATTEND Internal Medicine
DX: R51 Headache (principal); E23.7 Disorder of pituitary gland, unspecified; K21.9 Gastro-esophageal reflux disease without esophagitis; K92.1 Melena; M54.2 Cervicalgia; J45.909 Unspecified asthma, uncomplicated; K59.00 Constipation, unspecified
CPT/HCPCS: 96374; A9585; G0378; J1100; J1170; J1885; J2405; J7512; J7613

== ENCOUNTER 2017-09-22 12:48 | Emergency (ER) | payer OTHER ==
[2017-09-22 13:03] VITALS: TEMP 98.2
--- NOTE | 2017-09-22 13:30 | EDPHY ---
H & P Stated Complaint: MCKEON Time Seen by Provider: 09/22/17 13:07 HPI/ROS: CHIEF COMPLAINT: Headache, right eye pain HISTORY OF PRESENT ILLNESS: The patient is a 41-year-old female with a history of pituitary microadenoma resected in September of 2016 and then with a revision in July 2017. She was admitted last week with a headache and had a repeat MRI that was unremarkable except that the residual tumor had grown slightly. She had a normal prolactin level. Neurosurgery Dr. Blanco, her surgeon, was consulted and it was decided not to perform any repeat procedures. Endocrinology was also involved. She was discharged 2 days ago. She followed up with her primary doctor today and saw the PA. She complained of continued headache but new pressure behind her right eye and stating that the headache is also worsened by certain positions also that she occasionally has a watery discharge from right nares although it is infrequent. The PA sent her here to the ER with concerns about CSF leak. She has not had a fever. No weakness numbness or deficits. She states that she also has some photophobia in her right eye. REVIEW OF SYSTEMS: Constitutional: denies: chills, fever, recent illness, recent injury EENTM: See HPI Respiratory: denies: cough, shortness of breath Cardiac: denies: chest pain, irregular heart rate, lightheadedness, palpitations Gastrointestinal/Abdominal: denies: abdominal pain, diarrhea, nausea, vomiting, blood streaked stools Genitourinary: denies: dysuria, frequency, hematuria, pain Musculoskeletal: denies: joint pain, muscle pain Skin: denies: lesions, rash, jaundice, bruising Neurological: See HPI Hematologic/Lymphatic: denies: blood clots, easy bleeding, easy bruising Immunologic/allergic: denies: HIV/AIDS, transplant EXAM: GENERAL: Well-appearing, well-nourished and in no acute distress. HEAD: Atraumatic, normocephalic. EYES: Pupils equal round and reactive to light, extraocular movements intact, sclera anicteric, conjunctiva are normal. No nystagmus, no abnormalities with single high obstruction and revealing, normal retinal exam ENT: TMs normal, nares patent, oropharynx clear without exudates. Moist mucous membranes. NECK: Normal range of motion, supple without lymphadenopathy or JVD. LUNGS: Breath sounds clear to auscultation bilaterally and equal. No wheezes rales or rhonchi. HEART: Regular rate and rhythm without murmurs, rubs or gallops. ABDOMEN: Soft, nontender, normoactive bowel sounds. No guarding, no rebound. No masses appreciated. BACK: No CVA tenderness, no spinal tenderness, step-offs or deformities EXTREMITIES: Normal range of motion, no pitting or edema. No clubbing or cyanosis. NEUROLOGICAL: Cranial nerves II through XII grossly intact. Normal speech, normal gait. 5/5 strength, normal movement in all extremities, normal sensation PSYCH: Normal mood, normal affect. SKIN: Warm, dry, normal turgor, no visible rashes or lesions. Source: Patient Exam Limitations: No limitations - Personal History LMP (Females 10-55): 8-14 Days Ago Current Tetanus/Diphtheria Vaccine: Yes Current Tetanus Diphtheria and Acellular Pertussis (TDAP): Yes - Medical/Surgical History Hx Asthma: Yes Hx Chronic Respiratory Disease: No Hx Diabetes: No Hx Cardiac Disease: No Hx Renal Disease: No Hx Cirrhosis: No Hx Alcoholism: No Hx HIV/AIDS: No Hx Splenectomy or Spleen Trauma: No Other PMH: pituitary tumor surg - Social History Smoking Status: Former smoker Alcohol Use: Sober Drug Use: None Constitutional: Initial Vital Signs Temperature (C) 36.8 C 09/22/17 13:01 Heart Rate 92 09/22/17 13:01 Respiratory Rate 16 09/22/17 13:01 Blood Pressure 127/83 H 09/22/17 13:01 O2 Sat (%) 98 09/22/17 13:01 O2 Delivery Mode Room Air Allergies/Adverse Reactions: No Known Allergies Allergy (Verified 09/22/17 13:00) Home Medications: Medication Instructions Recorded ALPRAZolam [Xanax 1 MG (*)] 1 mg PO TID 09/16/17 Acetaminophen [Tylenol ES 500 mg 1,000 mg PO Q6 09/16/17 (*)] Beclomethasone Qvar 80 [Qvar 80 2 puffs IH TID 09/16/17 (*)] DULoxetine [Cymbalta 30 MG (*)] 30 mg PO DAILY 09/16/17 Herbals/Supplements -Info Only 1 ea PO DAILY 09/16/17 Zolpidem Tartrate [Ambien 5MG (*)] 5 mg PO HS 09/16/17 Methocarbamol [Robaxin 500 mg (*)] 500 mg PO TID PRN #30 tab 09/19/17 Ondansetron Odt [Zofran Odt 4 mg 4 mg PO Q4HRS PRN #30 tab 09/19/17 (*)] Topiramate [Topamax 25MG (*)] 25 mg PO DAILY #30 tab 09/19/17 Topiramate [Topamax 25MG (*)] 50 mg PO HS #60 tab 09/19/17 oxyCODONE IR [Oxycodone Ir (*)] 5 mg PO Q4 PRN #15 tab 09/19/17 predniSONE 20 mg PO DAILY #4 tablet 09/19/17 HYDROmorphone HCL [Dilaudid 2 mg 2 mg PO Q4-6PRN PRN #14 tab 09/22/17 (RX)] Ketorolac Tromethamine [Toradol] 10 mg PO Q6H #16 tab 09/22/17 Metoclopramide [Reglan 10 mg tab 10 mg PO BID PRN #10 tab 09/22/17 (RX)] Medical Decision Making ED Course/Re-evaluation: 1:30 p.m. I discussed the case with Dr. Blanco who is very familiar with the patient. He thinks that she is having migraines primarily and treatment for these seemed to help while she was in the hospital. Endocrinology is considering starting other medications that may help as well. He states that he has evaluated her nose dripping and does not think that it is a CSF leak because it is extremely infrequent. He does not want us to do any further imaging at this point. He has follow-up with her in 2 weeks but will move it up for the next few days. I will treat the patient with Reglan, Dilaudid and migraine-type medications and observed. Patient understands and agrees with this plan. 2:15 p.m. the patient is feeling much better. Because of the nationwide shortage of Reglan she received Phenergan. I spoke with she and her . She has not had any drainage from her nose since arriving. Her headache is completely gone. We discussed the possibility this is migraines. she states that the neurosurgeon and neurologist told her that this may be the case well. She is read requesting a prescription for a abortive medication. She takes Topamax already occasionally as well as oxycodone. I will prescribe her Reglan and Toradol. She is also asking for Dilaudid because that seemed to work well here. I disclose this does not work as well orally. We discussed indications for returning. Differential Diagnosis: Partial list of the Differential diagnosis considered include but were not limited to; migraine headache, tension headache, ocular migraine, CSF leak, pituitary gland tumor and although unlikely based on the history and physical exam, I also considered ischemia, hemorrhage. I discussed these differential diagnoses and the plan with the patient as well as the usual and expected course. The patient understands that the diagnosis is provisional and that in medicine we are not always correct and that further workup is often warranted. Usual and customary warnings were given. All of the patient's questions were answered. The patient was instructed to return to the emergency department should the symptoms at all worsen or return, otherwise to followup with the physician as we discussed. - Data Points Medications Given: Discontinued Medications Hydromorphone HCl (Dilaudid) 0.5 mg IVP EDNOW ONE Stop: 09/22/17 13:32 Last Admin: 09/22/17 13:46 Dose: 0.5 mg Metoclopramide HCl (Reglan Injection) 10 mg IVP EDNOW ONE Stop: 09/22/17 13:32 Last Admin: 09/22/17 13:53 Dose: Not Given Promethazine HCl (Phenergan) 12.5 mg IVP EDNOW ONE Stop: 09/22/17 13:40 Last Admin: 09/22/17 13:45 Dose: 12.5 mg Departure - Departure Disposition: Home, Routine, Self-Care Clinical Impression: Headache Qualifiers: Headache type: unspecified Headache chronicity pattern: chronic headache Intractability: not intractable Qualified Code(s): R51 - Headache Condition: Fair Instructions: Acute Headache (DC) Referrals: RADHA DELEON [Other] - As per Instructions William Blanco MD [Medical Doctor] - 2-3 days, call for appt. Prescriptions: HYDROmorphone HCL [Dilaudid 2 mg (RX)] 2 mg PO Q4-6PRN PRN #14 tab PRN Reason: Pain, Mild Ketorolac Tromethamine [Toradol] 10 mg PO Q6H #16 tab Metoclopramide [Reglan 10 mg tab (RX)] 10 mg PO BID PRN #10 tab PRN Reason: Headache
[2017-09-22] MEDS ORDERED: HYDROmorphONE/DILAUDID 1 MG/ML INJ IVP ONE (13:31)
[2017-09-22] MEDS ORDERED: METOCLOPRAMIDE 10 MG/2 ML VIAL IVP ONE (13:31)
[2017-09-22] MEDS ORDERED: PROMETHAZINE HCL 25 MG/ML INJ IVP ONE (13:39)
[2017-09-22 14:19] VITALS: BP 125/93; PULSE 82; RESP 18; O2SAT 94
== END 2017-09-22 14:28 | disposition home or self-care (01) ==
DX: R51 Headache (principal); J45.909 Unspecified asthma, uncomplicated; Z87.891 Personal history of nicotine dependence
CPT/HCPCS: 96374; J1170; J2550

== ENCOUNTER 2017-10-18 15:53 | Emergency (ER) | payer OTHER ==
[2017-10-18 16:12] VITALS: BP 137/109; PULSE 93; RESP 18; TEMP 97.9; O2SAT 95
[2017-10-18] MEDS ORDERED: NS 500 ML IV ONE (16:59)
[2017-10-18] MEDS ORDERED: ONDANSETRON 4 MG/2 ML VIAL IVP ONE (17:16)
[2017-10-18] MEDS ORDERED: HYDROmorphONE/DILAUDID 1 MG/ML INJ IVP ONE ×2 (17:16→19:47)
[2017-10-18] MEDS ORDERED: GADOBUTROL 10 ML VIAL IVP ONE (17:19)
[2017-10-18 17:26] LABS: PLATELET COUNT 353 10^3/uL (150-400)
--- NOTE | 2017-10-18 18:06 | EDPHY ---
H & P Time Seen by Provider: 10/18/17 16:57 HPI/ROS: HPI Headache. 41-year-old female by private vehicle. This patient was seen by her primary care physician Dr. Almanza at the [facility]. She has a history of pituitary apical flex the. She has had chronic headaches secondary to this since her surgery which was performed by Dr. Drew Blanco. Her last MRI was on the 16 of September of this year. She presented to Dr. Almanza office complaining of a headache which she describes as frontal and aching worse than usual with associated nausea and vomiting which is new and decreased hearing from her left ear. Dr. Almanza spoke with Dr. Drew Blanco who is on-call currently at [facility]. He is requesting that we repeat a with and without contrast MRI of the brain. ROS: Constitutional: No fever, no chills. No weakness. Eyes: No discharge. No changes in vision. ENT: No sore throat. No nasal congestion or rhinorrhea. As above. Respiratory: No cough. No shortness of breath. Cardiac: No chest pain, no palpitations. Gastrointestinal: No abdominal pain, as above, no diarrhea. Genitourinary: No hematuria. No dysuria or increased frequency with urination. Musculoskeletal: No back pain. No neck pain. No myalgias or arthralgias. Skin: No rashes. Neurological: As above. No focal weakness or altered sensation. Past medical history: As above. Tubal ligation. Social history: Nonsmoker. No alcohol. Here by herself. Physical Exam: General Appearance: Alert, no distress. This patient is responding to questions appropriately and in full sentences. This patient appears well- hydrated and well-nourished. Eyes: Pupils equal and round no pallor or injection. No lid edema, erythema or injection. No photophobia. No nystagmus. Respiratory: There are no retractions, lungs are clear to auscultation with good air movement bilaterally. Cardiovascular: Regular rate and rhythm. No murmur. Gastrointestinal: Abdomen is soft and nontender, no masses, bowel sounds normal. No focal tenderness at McBurney's point. No Mccray sign. Neurological: Motor sensory function is grossly intact. Cranial nerves are normal. Gait is normal. Skin: Warm and dry, no rashes. Musculoskeletal: Neck is supple and nontender. No pain on flexion of her neck. Extremities are symmetrical. All joints range without pain or impingement. Psychiatric: No agitation. No depression. Database: EKG: Imaging: Head CT without contrast: No bleeding. No significant hydrocephalus. No significant changes from the MRI which was done on September 16 of this year. Results were discussed with staff radiologist Dr. Jonah Hanson. MRI of brain with and without contrast: No acute pathology, no change from prior MRI 1 month ago. Residual macroadenoma. No evidence of hydrocephalus. Results were discussed with staff radiologist Dr. Juan Jose Page. Procedures: Emergency department course: Vital signs reviewed and are normal. She is afebrile Secondary to concern of possible bleeding, patient was sent for a CT of her head without contrast initially as noted above. She was and 4 mg of IV Zofran and 0.5 mg of IV hydromorphone initially for pain. She was started on IV normal saline with 1 L to be given over the next hour. I also explained to her that she would likely get another MRI of her brain in the emergency department. She consents to this plan. The patient required another dose, 0.5 mg of IV hydromorphone for treatment of her headache. 8:00 p.m., the patient was re-evaluated. She is feeling much more comfortable now. Repeat neurologic Assessment is nonfocal. I do not suspect infectious etiology. Results of her blood work, MRIs and CT were discussed with her and her . I explained that her CT and MRI did not demonstrate any evidence of a buildup of cerebral spinal fluid. I did discuss doing a lumbar puncture. I explained this procedure in detail to both her and her . At this time she declines the procedure. I discussed the risks of declining procedure. In my professional opinion she and her understand this risk and demonstrate capacitance to make these decisions. I consulted with on-call neurosurgeon Dr. Bhavani Ledesma. The case was discussed with her in detail. At this time we feel the patient is safe for discharge to home. She will follow up with her neurosurgeon Dr. Blanco tomorrow in the office. My conversation with Dr. Ledesma was discussed with the patient and her . The patient does feel comfortable going home. All of her questions were answered. She will follow up with her neurosurgeon tomorrow as discussed. Return to emergency department precautions thoroughly reviewed with the 2 of them. All of their questions were answered. The patient was discharged home in good condition. Differential Diagnosis: The differential diagnosis on this patient includes but is not limited to migraine headache, post pituitary surgery headache. Subarachnoid hemorrhage, subdural hematoma, meningitis, encephalitis, This represents a partial list of diagnoses considered. These considerations are based on history, physical exam , past history, reassessment and diagnostic testing. Smoking Status: Former smoker Constitutional: Initial Vital Signs Temperature (C) 36.6 C 10/18/17 16:05 Heart Rate 93 10/18/17 16:05 Respiratory Rate 18 10/18/17 16:05 Blood Pressure 137/109 H 10/18/17 16:05 O2 Sat (%) 95 10/18/17 16:05 O2 Delivery Mode Room Air Allergies/Adverse Reactions: No Known Allergies Allergy (Verified 10/18/17 16:08) Home Medications: Medication Instructions Recorded ALPRAZolam [Xanax 1 MG (*)] 1 mg PO TID 09/16/17 Acetaminophen [Tylenol ES 500 mg 1,000 mg PO Q6 09/16/17 (*)] Beclomethasone Qvar 80 [Qvar 80 2 puffs IH TID 09/16/17 (*)] DULoxetine [Cymbalta 30 MG (*)] 30 mg PO DAILY 09/16/17 Herbals/Supplements -Info Only 1 ea PO DAILY 09/16/17 Zolpidem Tartrate [Ambien 5MG (*)] 5 mg PO HS 09/16/17 Methocarbamol [Robaxin 500 mg (*)] 500 mg PO TID PRN #30 tab 09/19/17 Ondansetron Odt [Zofran Odt 4 mg 4 mg PO Q4HRS PRN #30 tab 09/19/17 (*)] Topiramate [Topamax 25MG (*)] 25 mg PO DAILY #30 tab 09/19/17 Topiramate [Topamax 25MG (*)] 50 mg PO HS #60 tab 09/19/17 oxyCODONE IR [Oxycodone Ir (*)] 5 mg PO Q4 PRN #15 tab 09/19/17 predniSONE 20 mg PO DAILY #4 tablet 09/19/17 HYDROmorphone HCL [Dilaudid 2 mg 2 mg PO Q4-6PRN PRN #14 tab 09/22/17 (RX)] Ketorolac Tromethamine [Toradol] 10 mg PO Q6H #16 tab 09/22/17 Metoclopramide [Reglan 10 mg tab 10 mg PO BID PRN #10 tab 09/22/17 (RX)] Hydrocodone/APAP 5/325 [[place] 1 - 2 tab PO Q4-6PRN PRN #10 tab 10/18/17 5/325 (*)] Ondansetron Odt [Zofran Odt 4 mg 4 mg PO Q4PRN PRN #10 tab 10/18/17 (*)] Medical Decision Making - Data Points Laboratory Results: Laboratory Results 10/18/17 17:10 10/18/17 17:10 Medications Given: Discontinued Medications Hydromorphone HCl (Dilaudid) 0.5 mg IVP EDNOW ONE Stop: 10/18/17 17:17 Last Admin: 10/18/17 17:22 Dose: 0.5 mg Hydromorphone HCl (Dilaudid) 0.5 mg IVP EDNOW ONE Stop: 10/18/17 19:48 Last Admin: 10/18/17 19:58 Dose: 0.5 mg Sodium Chloride (Ns) 500 mls @ 0 mls/hr IV EDNOW ONE; Wide Open PRN Reason: Protocol Stop: 10/18/17 17:00 Last Admin: 10/18/17 17:20 Dose: 500 mls Ondansetron HCl (Zofran) 4 mg IVP EDNOW ONE Stop: 10/18/17 17:17 Last Admin: 10/18/17 17:22 Dose: 4 mg Departure - Departure Disposition: Home, Routine, Self-Care Clinical Impression: Headache, History of pituitary surgery Condition: Good Instructions: Acute Headache (ED) Additional Instructions: Read and follow provided instructions. Follow-up with Dr. Blanco, tomorrow, in his office as discussed. Call his office at 8:30-9 a.m. tomorrow morning for appointment time. Take medication as prescribed for nausea. [place]/Percocet dosin-2 every 4-[address] not drive on this medication. Return to the emergency department for worsening headache, fever, vomiting or other serious concerns. Referrals: William Blanco MD [Medical Doctor] - As per Instructions Prescriptions: Hydrocodone/APAP 5/325 [[place] 5/325 (*)] 1 - 2 tab PO Q4-6PRN PRN #10 tab PRN Reason: Pain, Moderate Ondansetron Odt [Zofran Odt 4 mg (*)] 4 mg PO Q4PRN PRN #10 tab PRN Reason: For Nausea & Vomiting
== END 2017-10-18 20:19 | disposition home or self-care (01) ==
PROC: 3E0337Z Introduction of Electrolytic and Water Balance Substance into Peripheral Vein, Percutaneous Approach (ICD-10-PCS; principal; 2017-10-18)
DX: R51 Headache (principal); E86.9 Volume depletion, unspecified; Z86.39 Personal history of other endocrine, nutritional and metabolic disease; Z87.891 Personal history of nicotine dependence
CPT/HCPCS: 96374; A9585; J1170; J2405

== ENCOUNTER 2018-05-09 05:18 | Inpatient (IN) | payer OTHER ==
[2018-05-09] MEDS ORDERED: ACETAMINOPHEN 500 MG TAB PO ONE (05:47)
[2018-05-09] MEDS ORDERED: ceFAZolin 2 GM/DEXTROSE 100 ML IV ONE (05:47)
[2018-05-09] MEDS ORDERED: LR 1,000 ML IV ONE (05:48)
[2018-05-09] MEDS ORDERED: GADOBUTROL 10 ML VIAL IVP ONE (05:56)
[2018-05-09] MEDS ORDERED: MIDAZOLAM 2 MG/2 ML VIAL ONE (06:32)
[2018-05-09] MEDS ORDERED: THROMBIN (BOVINE) 5,000 UNIT VIAL TP ONE (06:45)
[2018-05-09] MEDS ORDERED: LIDO/EPI 2%** Not for Epidural 20 ML MDV ONE (06:45)
[2018-05-09] MEDS ORDERED: METHYLENE BLUE 0.5% 50 MG/10 ML AMP ONE (06:45)
[2018-05-09] MEDS ORDERED: BACITRACIN ZINC 14.2 GM OINTTUBE TP ONE ×2 (06:45→09:38)
[2018-05-09] MEDS ORDERED: EPINEPHrine 30 MG/30 ML MDV (0.1 MG/0.1 ML) ONE (06:46)
--- NOTE | 2018-05-09 06:54 | PDHPUP ---
History & Physical Update H&P update statement: This history and physical update is based on an assessment of the patient which was completed after admission or registration (within 24 hours), but prior to the surgery/procedure. H&P update: H&P reviewed & patient examined, no change in patient's condition since H&P completed
--- NOTE | 2018-05-09 06:56 | PDANEPAE ---
ANE History of Present Illness transsphenoidal pituitary resection for mass effect ANE Past Medical History - Cardiovascular History Hx Hypertension: No Hx Arrhythmias: No Hx Chest Pain: No Hx Coronary Artery / Peripheral Vascular Disease: No Hx CHF / Valvular Disease: No Hx Palpitations: No - Pulmonary History Hx COPD: No Hx Asthma/Reactive Airway Disease: Yes Hx Recent Upper Respiratory Infection: Yes Hx Oxygen in Use at Home: No Hx Sleep Apnea: No Sleep Apnea Screening Result - Last Documented: Negative Pulmonary History Comment: SINUS INFECTION 01/2018 - Neurologic History Hx Cerebrovascular Accident: No Hx Seizures: No Neurologic History Comment: PITUTARY TUMOR. CAUSING VISUAL DISTURBANCES. INCREASED HEADACHES. FOREHEAD PRESSURE - Endocrine History Hx Diabetes: No - Renal History Hx Renal Disorders: No - Liver History Hx Hepatic Disorders: No - Neurological & Psychiatric Hx Hx Neurological and Psychiatric Disorders: Yes Neurological / Psychiatric History Comment: ANXIETY - Cancer History Hx Cancer: No - Congenital Disorder History Hx Congenital Disorders: No - GI History Hx Gastrointestinal Disorders: Yes Gastrointestinal History Comment: INTERMITTENT HEARTBURN HAS PRN RX - Other Health History Other Health History: REMVL PITUTIARY TUMOR 09/2016 RESIDUALLY HAS AFFECTED VISION. VISION WORSE ON LT. - Chronic Pain History Chronic Pain: Yes (FOREHEAD PRESSURE/HEADACHES) - Surgical History Prior Surgeries: SEPTOPLASTY/SMR TURBINATES 07/2017. REMVL PITUTARY TUMOR 2016 AT [facility]. [facility] 11/2016. X3 ANE Review of Systems Review of Systems: - Exercise capacity METS (RN): 4 METS ANE Patient History - Allergies Allergies/Adverse Reactions: No Known Allergies Allergy (Verified 10/18/17 16:08) - Home Medications Home medications: home medication list seen and reviewed Home Medications: ALPRAZolam [Xanax 1 MG (*)] 1 mg PO TID 09/16/17 [Last Taken 05/08/18] Acetaminophen [Tylenol ES 500 mg (*)] 1,000 mg PO Q6 09/16/17 [Last Taken ] Beclomethasone Qvar 80 [Qvar 80] 2 puffs IH TID 09/16/17 [Last Taken 05/08/18] DULoxetine [Cymbalta 30 MG (*)] 30 mg PO DAILY 09/16/17 [Last Taken 09/16/17] Herbals/Supplements -Info Only 1 ea PO DAILY 09/16/17 [Last Taken 05/08/18] Zolpidem Tartrate [Ambien 5MG (*)] 5 mg PO HS 09/16/17 [Last Taken 05/08/18] Lexapro 10 MG 10 mg PO DAILY 05/09/18 [Last Taken 05/08/18] - NPO status NPO Status: no food or drink >8 hours NPO Since - Liquids (Date): 05/09/18 NPO Since - Liquids (Time): 05:00 NPO Since - Solids (Date): 05/08/18 NPO Since - Solids (Time): 21:00 - Anes Hx Anes Hx: no prior problems - Smoking Hx Smoking Status: Former smoker ANE Labs/Vital Signs - Vital Signs Blood Pressure: 125/83 Heart Rate: 85 Respiratory Rate: 16 O2 Sat (%): 95 Height: 162.56 cm Weight: 61.235 kg ANE Physical Exam - Airway Neck exam: FROM Mallampati Score: Class 2 Mouth exam: normal dental/mouth exam - Pulmonary Pulmonary: no respiratory distress - Cardiovascular Cardiovascular: regular rate and rhythym - ASA Status ASA Status: II ANE Anesthesia Plan Anesthesia Plan: general endotracheal anesthesia Total IV Anesthesia: Yes
[2018-05-09] MEDS ORDERED: REMIFENTANIL HCL 1 MG VIAL ONE (07:23)
[2018-05-09] MEDS ORDERED: PROPOFOL/EMULSION 500 MG/50 ML BOTTLE IV ONE ×2 (07:23→09:07)
[2018-05-09] MEDS ORDERED: fentaNYL 100 MCG/2 ML INJ ONE ×2 (07:23→10:40)
[2018-05-09] MEDS ORDERED: PROPOFOL 200 MG/20 ML VIAL ONE (07:23)
[2018-05-09] MEDS ORDERED: MIDAZOLAM 2 MG/2 ML VIAL IVP ONE ×2 (07:30)
[2018-05-09] MEDS ORDERED: HYDROCORTISONE 100 MG/2 ML VIAL ONE (08:37)
[2018-05-09] MEDS ORDERED: ROCURONIUM 50 MG/5 ML VIAL ONE ×2 (08:38)
[2018-05-09] MEDS ORDERED: LIDOCAINE 2% 2 ML INJ ONE (08:38)
[2018-05-09] MEDS ORDERED: ONDANSETRON 4 MG/2 ML VIAL ONE (08:40)
[2018-05-09] MEDS ORDERED: NALOXONE HCL 0.4 MG/ML INJ IVP PRN ×2 (09:26→11:15)
[2018-05-09] MEDS ORDERED: ONDANSETRON 4 MG/2 ML VIAL IVP PRN (09:26)
[2018-05-09] MEDS ORDERED: ALBUTEROL 3 ML DEYVIAL IH PRN (09:26)
[2018-05-09] MEDS ORDERED: BISACODYL 10 MG SUPP PR PRN (09:40)
[2018-05-09] MEDS ORDERED: LACTULOSE 20 GM/30 ML UDCUP PO PRN (09:40)
[2018-05-09] MEDS ORDERED: ACETAMINOPHEN 325 MG TAB PO PRN (09:40)
[2018-05-09] MEDS ORDERED: MAGNESIUM HYDROXIDE 30 ML UDCUP PO PRN (09:40)
[2018-05-09] MEDS ORDERED: NS W/ 20 KCl/L 1,000 ML IV SCH (09:45)
[2018-05-09] MEDS ORDERED: GLYCOPYRROLATE 0.2 MG/1 ML VIAL ONE ×2 (10:28)
--- NOTE | 2018-05-09 10:38 | POSTANESTH ---
Post Anesthetic Evaluation Cardiovascular Status: Similar to Pre-Op Cond Respiratory Status: Normal, Stable Level of Consciousness/Mental Status: Alert and Oriented Pain Control: Adequate, Prn Tx Ordered Nausea/Vomiting Control: Adequate, Prn Tx Ordered Complications Possibly Related to Anesthesia: None Noted
[2018-05-09] MEDS ORDERED: HYDROmorphONE/DILAUDID 1 MG/ML INJ ONE ×2 (10:39→11:10)
[2018-05-09] MEDS: fentaNYL 100 MCG/2 ML INJ IVP PRN ×2 (10:43→10:48)
[2018-05-09] MEDS: HYDROmorphONE/DILAUDID 1 MG/ML INJ IVP PRN ×9 (10:45→16:44)
[2018-05-09] MEDS ORDERED: DIAZEPAM 5 MG/ML 1 ML SYR IVP PRN (11:15)
[2018-05-09] MEDS ORDERED: DIAZEPAM 5 MG/ML 1 ML SYR ONE (11:18)
--- NOTE | 2018-05-09 12:00 | GOP ---
[f rep st] OPERATIVE REPORT DATE OF OPERATION: SURGEON: William Blanco MD NEUROSURGEON: William Blanco MD CO-SURGEON: Marquita Green MD ANESTHESIA: General endotracheal. PREOPERATIVE DIAGNOSIS: Recurrent pituitary macroadenoma (prolactinoma). POSTOPERATIVE DIAGNOSIS: Recurrent pituitary macroadenoma (prolactinoma). PROCEDURE PERFORMED: 1. Endoscopic transsphenoidal craniotomy for resection of pituitary macroadenoma. 2. Resection of middle turbinate and harvest of free mucosal graft for closure. 3. Intraoperative stealth stereotactic neuronavigation for volumetric gross total resection of tumor. FINDINGS: Successful pituitary macroadenoma resection. SPECIMENS: Pituitary macroadenoma (recurrent). ESTIMATED BLOOD LOSS: 50 cc. INDICATIONS: The patient is a 42-year-old woman who I had taken for a transsphenoidal craniotomy for pituitary apoplexy a little over 1 year ago. At that time, it appears as though we had a gross total resection and the pathology came back as a prolactinoma; however, she has had some incidental recurrence of a cystic cavity with some contrast enhancement in the sella. She has headaches and some visual complaints; however, I told her that I do not think that these have anything to do with this recurrence. Her pathology originally showed a prolactinoma with a few steroid producing cells as well. She wanted to undergo a repeat resection for removal of the remaining tumor as it has grown on previous MRIs. DESCRIPTION OF PROCEDURE: After informed consent was obtained from the patient , the patient was brought to the operating room and was placed in supine position on the operating table. A formal time-out was performed, identifying the patient by name, medical record number, and date of . Preoperative antibiotics were given. The endotracheal tube was placed and general endotracheal anesthesia was smoothly induced. Epinephrine soaked pledgets were placed in the nose and the abdomen was prepped and draped in a normal sterile fashion. The face was also prepped with Betadine. The patient was draped. The Stealth unit was registered to the forehead and checked for accuracy using known surface landmarks. Dr. Green then began the procedure and cleared the mucosa from the area of the previous sphenoidotomy. She resected the middle turbinates for from which a free mucosal graft was harvested for use in later closure, as well as the bone from the middle turbinate. Her note is dictated under separate report. Once the sphenoid had been widely opened, I then explored the sella. Using the Stealth, we were able to localize the lateral, superior, and inferior aspects of where the tumor was located. It appeared that a lot of the sellar bone had regrown and there was a small opening where I could localize where the sella been previously opened, but this was not large enough to get any instruments in. I used an osteotome then to make a small craniotomy into the sella and this was widened both superior and laterally with Kerrison punches. The previous dura was quite scarred, but ultimately, this was opened using a sharp blade and a lot of proteinaceous fluid was expressed from this cystic cavity. We then used a combination of ring curettes and pituitary forceps to remove the contents of the sella where this cystic wall was located. The tissue appeared consistent with a pituitary adenoma and this was saved for permanent pathology. We continued this until we could visualize the remaining sellar contents. The normal gland was seen off to the left side superiorly and this was left intact. The arachnoid was quite scarred, so was not billowing down as often we would see, but I could fairly clearly see that there was no further tumor all the way to the lopez of each cavernous sinus. At this point, the wound was then copiously irrigated using bacitracin irrigation. Some FloSeal was used to control any bleeding from the inner portion of the sella, but this was minimal. At this point, a piece of Surgicel was used to cover the dura and the piece of bone from the middle turbinate was used to buttress the dura on the undersurface of the sella. We then placed the a free mucosal graft over this opening and this was glued in place using DuraSeal. The nasal cavity was then copiously irrigated and all blood was suctioned away. Merocel packs were then placed in the nose by Dr. Green, and the face was washed. Given the fact that there was minimal CSF leakage, I did not feel it was necessary to harvest the abdominal fat graft after all. The posterior pharynx was then suctioned out. The patient was awakened in the operating room. She was extubated and was transferred to the PACU in stable condition. There were no operative complications. I was scrubbed and present for the entire procedure and performed the procedure in conjunction with Dr. Green. FLUIDS/URINE OUTPUT: Per the anesthesia record. DRAINS: There were no drains. /[id number]/MODL MTDD
[2018-05-09] MEDS: DIAZEPAM 5 MG/ML 1 ML SYR IVP PRN ×2 (14:02→20:03)
[2018-05-09] MEDS ORDERED: ACET/CAFFEINE/BUTA FIORICET 1 EACH TAB PO PRN (14:04)
[2018-05-09] MEDS ORDERED: PROCHLORPERAZINE MALEATE 10 MG TAB PO PRN (14:04)
[2018-05-09] MEDS ORDERED: Rizatriptan Benzoate [Maxalt] 10 MG PO PRN (14:04)
[2018-05-09] MEDS ORDERED: ALBUTEROL 60 PUFFS/8 GM MDI IH PRN (14:04)
--- NOTE | 2018-05-09 14:12 | POSTOPPROG ---
Post Op Note Date of Operation: 05/09/18 Surgeon: William Blanco Coin Machine Operator: Marquita Green- Co- Surgeon Anesthesia: GET(General Endotracheal) Pre-op Diagnosis: Pituitary prlactinoma Post-op Diagnosis: Same Procedure: Transphenoidal approach for resection of prolactinoma Inf/Abcess present in the surg proc area at time of surgery?: No Depth: Organ Space Complications: None observed SOAP Progress Note Assessment/Plan: Assessment: Plan: 05/09/18 14:07 S: Patient recovering, still waking up from surgery. Stable O: NAD, VSS Nasal packing in place, no drainage PERRL, EOMI No droop CN II-XII grossly intact RUBALCAVA x4 A: 42 yo female sp transphenoidal resection of pituitary prolactinoma P: -Admit to ICU -q2 neuro checks -Postop CT in am -Strict I's and O's, if urine output exceeds 250 per hour or >400 in 2 hours, RN to order state serum Na and Urine spec grav and call PA with results -No drinking through a straw or blowing nose for 6 weeks -leave nasal packing in place, [place] to remove -monitor for signs of CSF leak -On 3 day hydrocortisone taper -Will follow up with Dr. Muniz in next 1-2 weeks for check of endocrine labs -Call NS with any questions or concerns Objective: Vital Signs Temp Pulse Resp BP Pulse Ox 36.3 C 89 10 L 103/77 91 L 05/09/18 12:00 05/09/18 13:00 05/09/18 13:00 05/09/18 13:00 05/09/18 13:00 05/08/18 05/09/18 05/10/18 05:59 05:59 05:59 Intake Total 1010 Output Total 300 Balance 710
--- NOTE | 2018-05-09 15:02 | PDMN ---
Medical Necessity Medical necessity: MCG: [facility] neuros[facility] [id number] INPT only : endoscopic transspenoidal craniotomy for resection of pituitary macroadenoma- recurrent pituitary macroadenoma( prolactinoma)
[2018-05-09] MEDS: oxyCODONE IR 5 MG TAB PO PRN (15:28)
[2018-05-09] MEDS: BACLOFEN 10 MG TAB PO PRN (17:45)
[2018-05-09] MEDS: ONDANSETRON DISINTEGRATING 4 MG TAB PO PRN (18:03)
[2018-05-09] MEDS: HYDROCORTISONE 10 MG TAB PO SCH (19:36)
[2018-05-09] MEDS: TOPIRAMATE 25 MG TAB PO SCH ×2 (20:02→20:06)
[2018-05-09] MEDS: SENNOSIDES/DOCUSATE SODIUM TAB PO SCH (20:02)
[2018-05-09] MEDS: FAMOTIDINE 20 MG TAB PO SCH (20:02)
[2018-05-09] MEDS: ZOLPIDEM TARTRATE 5 MG TAB PO SCH ×2 (20:04→21:15)
[2018-05-09] MEDS: HYDROCODONE/APAP 10/325 TAB PO PRN (20:17)
[2018-05-10] MEDS: ONDANSETRON 4 MG/2 ML VIAL IVP PRN ×2 (00:21→06:28)
[2018-05-10] MEDS: DIAZEPAM 5 MG/ML 1 ML SYR IVP PRN ×3 (02:15→20:15)
[2018-05-10] MEDS: HYDROCODONE/APAP 10/325 TAB PO PRN ×3 (03:12→17:38)
--- NOTE | 2018-05-10 06:47 | NEUSURGPN ---
Date of Surgery: 05/09/18 Post Op Day: 1 Assessment/Plan: Assessment: 42 yo female that is s/p resection of pituitary prolactinoma surgery #2. Pt is POD #1 Plan: -s/p pituitary tumor resection-no nasal dc -doing fine this am -CT head reviewed this am that was reviewed with Dr Blanco and ok -strict urine output monitoring -if urine output high then will order a USG and Serum Na -urine SG and Na have been stable -encourage PO intake -on 3 day hydrocortisone taper -no straw or blowing nose for 6 weeks -Dr Green to remove nasal packing likely tomorrow -Dr Muniz from Endocrine will set up outpt follow up -d/w and seen by Dr Blanco -call NS with any changes or issues (high urine output) Subjective: Awake and alert. NAD. Eating/drinking and voiding. No f/c/n/v/d. No neck/ chest/abd or gu complaints. Objective: AAO x 3, PERRLA/EOMI no droop CN 2-12 grossly intact +lt touch 5/5 BUE/BLE = No nasal dc Neuro Check Frequency: per routine Urinary Catheter in Place: No Catheter Insertion Date: 05/09/18 - Physician Discussed Patient with : Bella Patient Seen by : Bella Neurosurgery Physical Exam - Vitals, I&O, Labs I and O 05/09/18 05/10/18 05/11/18 05:59 05:59 05:59 Intake Total 5050 Output Total 5900 Balance -850 Weight 72.2 kg Intake: Oral (ml) 3350 IV Intake (ml) 1000 IV Infused (ml) 700 NS W/ 20 KCl/L 1,000 ml @ 700 100 mls/hr IV CONT CRISTINA Rx#:[id number] Output: Urine (ml) 5850 Catheter 5850 Estimated Blood Loss (ml) 50 Other: Intake Quantity Yes Sufficient Vital Signs Temp Pulse Resp BP Pulse Ox 36.6 C 85 13 115/74 96 05/09/18 20:00 05/10/18 06:00 05/10/18 06:00 05/10/18 06:00 05/10/18 06:00 Laboratory Results 05/10/18 06:00 ICD10 Worksheet Patient Problems: Problems Problem Status Onset Pituitary tumor Acute Headache Acute - ICD10 Problem Qualifiers (1) Pituitary tumor
[2018-05-10] MEDS ORDERED: TEARS/DEXTRAN 70/HYPROMELLOSE 15 ML OPHT.BTL EACHEYE PRN (08:15)
[2018-05-10] MEDS ORDERED: CALCIUM CARBONATE 500 MG CHEWABLE TAB PO PRN (08:15)
[2018-05-10] MEDS: FAMOTIDINE 20 MG TAB PO SCH ×2 (08:39→20:14)
[2018-05-10] MEDS: SENNOSIDES/DOCUSATE SODIUM TAB PO SCH ×2 (08:39→20:14)
[2018-05-10] MEDS: TOPIRAMATE 25 MG TAB PO SCH ×2 (08:39→20:14)
[2018-05-10] MEDS: ESCITALOPRAM OXALATE 10 MG TAB PO SCH (08:39)
[2018-05-10] MEDS: HYDROCORTISONE 10 MG TAB PO SCH ×2 (08:39→20:14)
[2018-05-10] MEDS: HYDROmorphONE/DILAUDID 1 MG/ML INJ IVP PRN ×5 (09:30→18:22)
--- NOTE | 2018-05-10 09:35 | GCON ---
[f rep st] CONSULT[facility] C[facility] PROFESSIONALS CONSULTATION. HISTORY OF PRESENT ILLNESS: The patient examined postoperatively after receiving pituitary tumor res ection of a prolactinoma. The patient is a very pleasant 42-year-old white female with a past medica l history of asthma, septoplasty, and a pituitary tumor for which she had recently underwent resectio n. This is her second resection. In discussion with the patient, she states that overall she is doi ng reasonably well. She denies any headache currently. She is having some weakness after walking. She is somewhat teary and somewhat tachycardic and seems very anxious. She denies any chest pain, pl euritic-type chest pain, or angina equivalent. No fever or night sweats. REVIEW OF SYSTEMS: 10-point review of systems performed is negative, except for what is listed in HP I. PAST MEDICAL HISTORY: Again, significant for asthma and pituitary tumor. PAST SURGICAL HISTORY: Septoplasty and a previous resection of her pituitary tumor. ALLERGIES: No known allergies to medications. SOCIAL HISTORY: No history of tobacco use. No history of alcohol. She is and has excellent family support. FAMILY HISTORY: Noncontributory. PHYSICAL EXAMINATION: VITAL SIGNS: Blood pressure is 120/75, pulse 75, respirations 14, temperature is 36.6, oxygen saturation 96% on room air. GENERAL: She is a well-developed, well-nourished, 42-y ear-old white female who is currently somewhat anxious and complaining of right leg numbness. HEENT: Eyes are PERRLA, EOMI. Nose exam is deferred. Throat shows no erythema or tonsillar hypertrophy. NECK: Supple. There is no cervical adenopathy. HEART: Regular rate and rhythm without murmurs, r ubs, or gallops. LUNGS: Clear to auscultation. No wheeze or rhonchi. ABDOMEN: Soft, nontender. Bowel sounds present in all 4 quadrants. EXTREMITIES: No clubbing, cyanosis, or edema. LABORATORY DATA: Sodium 141, potassium 4.5, chloride 108, CO2 26, BUN 5 creatinine 0.5, glucose is 1 32. IMPRESSION: 1. Status post transsphenoidal resection of pituitary tumor. This is a prolactinoma. 2. History of asthma. 3. History of previous septoplasty. 4. Anxiety. RECOMMENDATIONS: 1. Adequate pain control. 2. DVT and PE prophylaxis. 3. Stress ulcer prophylaxis. 4. Continue ambulation. 5. PT and OT. 6. Close cardiovascular and neurologic monitoring. /[id number]/MODL
[2018-05-10] MEDS ORDERED: LORazepam 2 MG/ML INJ IV ONE (10:30)
[2018-05-10] MEDS: diphenhydrAMINE 25 MG CAP PO PRN ×3 (10:51→19:45)
--- NOTE | 2018-05-10 16:39 | ASMTCASEMG ---
Living Arrangements What is your living Answers: With Spouse arrangement? Who do you live with? Type Of Residence What kind of residence do Answers: House you live in? Discharge Plan Comments Coordination Status Comments Notes: Patient is a 42yo female who was admitted for resection of a recurrent pituitary tumor.Patient still has occasional bad headaches, emotional lability and some new visual loss. OT/PT have been ordered. Patient lives in [place]. D/C plan TBD. CM will follow. Date Signed: 05/10/2018 04:38 PM Electronically Signed By:Joslyn Ken LCSW
[2018-05-10] MEDS: ZOLPIDEM TARTRATE 5 MG TAB PO SCH (20:14)
[2018-05-11] MEDS: HYDROmorphONE/DILAUDID 1 MG/ML INJ IVP PRN ×9 (01:40→23:16)
[2018-05-11] MEDS: DIAZEPAM 5 MG/ML 1 ML SYR IVP PRN ×3 (03:23→17:57)
[2018-05-11] MEDS: HYDROCODONE/APAP 10/325 TAB PO PRN (03:23)
[2018-05-11] MEDS: diphenhydrAMINE 25 MG CAP PO PRN ×3 (05:31→20:14)
[2018-05-11] MEDS: ONDANSETRON 4 MG/2 ML VIAL IVP PRN (06:27)
[2018-05-11] MEDS: POLYETHYLENE GLYCOL 3350 17 GM PKT PO PRN (06:29)
--- NOTE | 2018-05-11 07:13 | NEUSURGPN ---
Date of Surgery: 05/09/18 Post Op Day: 2 Assessment/Plan: Assessment: 42 yo female that is s/p resection of pituitary prolactinoma surgery #2. Pt is POD #2 Plan: -s/p pituitary tumor resection-no nasal dc -doing fine this am-better than yesterday -CT head reviewed and ok from yesterday -strict urine output monitoring -if urine output high then will order a USG and Serum Na -serum Na levels stable -urine SG and Na have been stable -encourage PO intake -on 3 day hydrocortisone taper -no straw or blowing nose for 6 weeks -Dr Green to remove nasal packing likely today -Dr Muniz from Endocrine will set up outpt follow up -d/w Dr Blanco -call NS with any changes or issues (high urine output) Subjective: Awake and alert. NAD. Eating/drinking and voiding. No f/c/n/v/d. No neck/ chest/abd or gu complaints. Objective: AAO x 3, PERRLA/EOMI no droop CN 2-12 grossly intact +lt touch 5/5 BUE/BLE = No nasal dc Neuro Check Frequency: per routine Urinary Catheter in Place: No Catheter Insertion Date: 05/09/18 - Physician Discussed Patient with : Bella Neurosurgery Physical Exam - Vitals, I&O, Labs I and O 05/10/18 05/11/18 05/12/18 05:59 05:59 05:59 Intake Total 5050 2950 150 Output Total 5900 4875 200 Balance -850 -1925 -50 Weight 72.2 kg Intake: Oral (ml) 3350 2950 150 IV Intake (ml) 1000 IV Infused (ml) 700 NS W/ 20 KCl/L 1,000 ml @ 700 100 mls/hr IV CONT CRISTINA Rx#:[id number] Output: Urine (ml) 5850 4875 200 Catheter 5850 1475 Toilet 3400 200 Estimated Blood Loss (ml) 50 Other: Intake Quantity Yes Sufficient Number of Voids Toilet 1 Number of Stools Toilet 0 Vital Signs Temp Pulse Resp BP Pulse Ox 36.8 C 86 17 123/83 H 96 05/10/18 20:00 05/11/18 06:00 05/11/18 06:00 05/11/18 04:00 05/11/18 06:00 Laboratory Results 05/11/18 04:50 ICD10 Worksheet Patient Problems: Problems Problem Status Onset Pituitary tumor Acute Headache Acute - ICD10 Problem Qualifiers (1) Pituitary tumor
[2018-05-11] MEDS: PROMETHAZINE HCL 25 MG/ML INJ IVP PRN ×2 (07:51→14:39)
[2018-05-11] MEDS: FAMOTIDINE 20 MG TAB PO SCH ×2 (08:48→20:14)
[2018-05-11] MEDS: TOPIRAMATE 25 MG TAB PO SCH ×3 (08:48→17:57)
[2018-05-11] MEDS: GABAPENTIN 300 MG CAP PO SCH ×3 (08:48→20:13)
[2018-05-11] MEDS: ESCITALOPRAM OXALATE 10 MG TAB PO SCH (08:48)
[2018-05-11] MEDS: SENNOSIDES/DOCUSATE SODIUM TAB PO SCH ×2 (08:48→20:13)
[2018-05-11] MEDS: HYDROCORTISONE 10 MG TAB PO SCH (08:49)
[2018-05-11] MEDS: OXYCODONE/APAP 5/325 TAB PO PRN ×4 (08:54→23:16)
--- NOTE | 2018-05-11 10:46 | SOAPPROG ---
SOAP Progress Note Assessment/Plan: Assessment/Plan: POD 2 revision TSS approach for pituitary tumor. Doing well. packs pulled. Given strict CSF leak precautions. Can start saline mist in a week. Will see her back in 2 weeks. Can d/c home from my perspective whenever she is ok from NSGY standpoint. 05/11/18 10:44 Subjective: Doing well, feels better than yesterday. no rhinorrhea. No sig salty or metallic taste. Wants packs out. C/o fullness sensation in ears. Objective: AFVSS RA Packs removed no leaking, NC patent B, can see back to [employer]. No bleeding Vital Signs Temp Pulse Resp BP Pulse Ox 37.3 C 99 12 131/85 H 94 05/11/18 07:59 05/11/18 07:59 05/11/18 07:59 05/11/18 07:59 05/11/18 07:59 Laboratory Results 05/11/18 04:50 05/10/18 05/11/18 05/12/18 05:59 05:59 05:59 Intake Total 5050 2950 150 Output Total 5900 4886 200 Balance -850 -1925 -50 ICD10 Worksheet Patient Problems: Problems Problem Status Onset Pituitary tumor Acute Headache Acute
[2018-05-11] MEDS: ZOLPIDEM TARTRATE 5 MG TAB PO SCH (20:14)
[2018-05-11] MEDS ORDERED: HYDROCORTISONE 10 MG TAB PO ONE (21:00)
[2018-05-12] MEDS: DIAZEPAM 5 MG/ML 1 ML SYR IVP PRN ×2 (00:05→08:48)
[2018-05-12] MEDS: HYDROmorphONE/DILAUDID 1 MG/ML INJ IVP PRN ×3 (01:16→07:50)
[2018-05-12] MEDS: PROMETHAZINE HCL 25 MG/ML INJ IVP PRN (01:20)
[2018-05-12] MEDS: BACLOFEN 10 MG TAB PO PRN (04:11)
[2018-05-12] MEDS: oxyCODONE IR 5 MG TAB PO PRN (04:11)
[2018-05-12] MEDS: POLYETHYLENE GLYCOL 3350 17 GM PKT PO PRN (04:11)
--- NOTE | 2018-05-12 08:20 | NEUSURGPN ---
Assessment/Plan: Assessment: Plan: 05/09/18 14:07 Assessment: 42 yo female that is s/p resection of pituitary prolactinoma surgery #3. Plan: -s/p pituitary tumor resection- -doing fine this am- continues to feel better each day -Optimize pain control- patient with some complaints about pain control. No need for increase in opioids as this will not treat headaches. Will add ibuprofen and robaxin -CT head reviewed and looks good. -strict urine output monitoring -if urine output high then will order a USG and Serum Na -serum Na levels stable -urine SG and Na have been stable -encourage PO intake -on 3 day hydrocortisone taper -no straw or blowing nose for 6 weeks -Dr Green removed nasal packing -Dr Muniz from Endocrine will set up outpt follow up -d/w Dr Blanco -Dispo- plan to DC home tomorrow when cleared by therapies and pain well controlled -call NS with any changes or issues (high urine output) Subjective: Doing well, she thinks her pain is better than when she came in. She would like to change muscle relaxants. Objective: AAO x 3, PERRLA/EOMI no droop CN 2-12 grossly intact +lt touch 5/5 BUE/BLE = No nasal discharge Catheter Insertion Date: 05/09/18 - Physician Discussed Patient with : Bella Neurosurgery Physical Exam - Vitals, I&O, Labs I and O 05/11/18 05/12/18 05/13/18 05:59 05:59 05:59 Intake Total 2950 2180 Output Total 4875 2950 Balance -1925 -770 Intake: Oral (ml) 2950 2180 Output: Urine (ml) 4875 2950 Catheter 1475 Toilet 3400 2950 Other: Intake Quantity Yes Sufficient Number of Voids Toilet 1 Number of Stools Toilet 0 Vital Signs Temp Pulse Resp BP Pulse Ox 36.6 C 98 16 124/94 H 94 05/11/18 23:43 05/11/18 23:43 05/11/18 23:43 05/11/18 23:43 05/11/18 23:43 Laboratory Results 05/11/18 04:50 ICD10 Worksheet Patient Problems: Problems Problem Status Onset Pituitary tumor Acute Headache Acute
[2018-05-12] MEDS: METHOCARBAMOL 750 MG TAB PO PRN ×2 (08:48→16:59)
[2018-05-12] MEDS: FAMOTIDINE 20 MG TAB PO SCH ×2 (09:36→22:19)
[2018-05-12] MEDS: ESCITALOPRAM OXALATE 10 MG TAB PO SCH (09:36)
[2018-05-12] MEDS: SENNOSIDES/DOCUSATE SODIUM TAB PO SCH ×2 (09:37→22:18)
[2018-05-12] MEDS: OXYCODONE/APAP 5/325 TAB PO PRN ×3 (09:37→17:45)
[2018-05-12] MEDS: GABAPENTIN 300 MG CAP PO SCH ×3 (09:38→22:18)
[2018-05-12] MEDS: TOPIRAMATE 25 MG TAB PO SCH (10:55)
[2018-05-12] MEDS: ALPRAZolam 1 MG TAB PO SCH ×3 (11:09→22:19)
[2018-05-12] MEDS: IBUPROFEN 800 MG TAB PO SCH ×2 (11:17→17:40)
--- NOTE | 2018-05-12 16:16 | GOP ---
[f rep st] OPERATIVE REPORT DATE OF OPERATION: 05/09/2018 SURGEON: Marquita Green MD ANESTHESIA: General. PREOPERATIVE DIAGNOSIS: 1. Pituitary adenoma. 2. Previous pituitary resection through a transeptal approach. 3. Previous septoplasty. POSTOPERATIVE DIAGNOSIS: 1. Pituitary adenoma. 2. Previous pituitary resection through a transeptal approach. 3. Previous septoplasty PROCEDURES: 1. Revision transsphenoidal approach to the pituitary. 2. Stereotactic volumetric navigation of the extradural, skull base, and paranasal sinuses utilizing the [employer] system. CO-SURGEON: William Blanco MD COMPLICATIONS: None. FINDINGS: Patient was found to have a fairly midline septum. She was noted to have a sphenoidotomy done on the right side but not the left side. This had scarred in slightly on the right. She was noted to have a mostly cystic but partially solid adenoma, which was resected by Dr. Blanco, and then repair of a small CSF leak. PREOPERATIVE NOTE: The patient is a very pleasant woman who has a history of a pituitary apoplexy requiring urgent decompression through a transeptal approach. This was done about a year ago. Postoperatively, she had nasal obstruction on the right and was noted to have some scarring between the septum and inferior turbinate on this side as well as a deviated septum. She underwent a scar release as well as a septoplasty. She has continued to have headaches and other symptoms and it was felt by Dr. Blanco as well as other colleagues that resection of this was reasonable; so I was called for assistance with the approach. ESTIMATED BLOOD LOSS: Minimal. DESCRIPTION OF PROCEDURE: The patient was first seen in the preoperative area where informed consent was obtained. She was then brought back to the operating room where Anesthesia sedated and intubated her. The bed was turned 90 degrees. A universal time-out protocol was performed. Once this was confirmed, she was then prepped and draped in a sterile fashion. Epinephrine- soaked pledgets were placed within the nares bilaterally, and then once these had sufficient time to act, they were removed. The [employer] headpiece was placed and then she was registered and confirmed to be tracking accurately. We did have a CT/MRI merge system intact. Once this was done, I then placed some epinephrine-soaked pledgets medial to the middle turbinate on each side after lateralizing the middle turbinate and being able to see the superior turbinate. On the right side, she still had some scarring between the septum and middle turbinate as well as the superior turbinate and this was taken down using a small sickle knife. Once epinephrine soaked pledgets had time to act, it was felt that access would be improved by removing the middle turbinate on the right side; so turbinate scissors were used to make an incision at the crotch of the middle turbinate and the turbinate was removed as a whole coming down across the basal lamella. The turbinate was removed and then the bipolar cautery was used to cauterize the base of this area where there was some bleeding. After this was done, the sphenoidotomy on the right side was widened with the microdebrider until it was more accessible. On the left side, I lateralized the middle turbinate and then removed the inferior portion of the inferior turbinate with a straight Andrez-Cut and the microdebrider. I was able to visualize the natural os. Dissection was used to slightly widen this and then the debrider was used to make this wider inferiorly and medially. I then performed a posterior septectomy using a straight Andrez-Cut as well as Kerrison punches. At this point, I then dissected the tissue with the posterior septal branch of the spinopontine artery across the face of the sphenoid and protected this by elevating this tissue down off the bone. Then, the downbiting Kerrison was used to remove the face of the sphenoid inferiorly all the way down to the floor. Also, a down and upbiting Kerrison was used to widen this laterally as well as superiorly. Once we were able to see the opticocarotid recesses on both sides, Dr. Blanco and I changed positions. I came over to her left side and he came to the right side. She was noted to have a fairly dominant right sphenoid. Dr. Blanco then performed his portion of the procedure, which was resection of the pituitary macroadenoma, and this will be dictated on a separate dictation. Once he was done, she seemed to have a possible CSF leak but it had pretty much stopped prior to the end of the procedure but it was felt that some repair would be prudent and so Dr. Blanco placed some Surgicel within the defect as well as used some bone from the middle turbinate as an underlay graft. I then removed the mucosa from the middle turbinate as a whole and this was used as an overlay graft. We did take care to remove the mucosa around the sphenoid prior to prevent any mucocele formation and allow sealing of this graft. Once this was done, I then placed 2 Merocel packs that had been covered with a gloved finger and then tied together using a 3-0 Prolene. One of these packs was placed on either side of the nasal cavity under direct visualization, noting that they just abutted the face of the sphenoid, and Duracell was placed over the mucosal overlay graft prior to placing these packs. Once this was all done, the oropharynx was suctioned and OG tube suction was used to suction out the pharynx and the stomach. The patient was turned back over to anesthesia where she was awoken and extubated and taken to the PACU in stable condition. There were no complications. She tolerated the procedure well and all pledget and instrument counts were correct at the end of the procedure. /[id number]/MODL MTDD
[2018-05-13] MEDS: IBUPROFEN 800 MG TAB PO SCH ×3 (00:17→12:31)
[2018-05-13] MEDS: OXYCODONE/APAP 5/325 TAB PO PRN ×3 (00:17→12:32)
[2018-05-13] MEDS: TOPIRAMATE 25 MG TAB PO SCH ×2 (00:20→09:19)
[2018-05-13] MEDS: ZOLPIDEM TARTRATE 5 MG TAB PO SCH (00:20)
--- NOTE | 2018-05-13 07:41 | SOAPPROG ---
SOAP Progress Note Assessment/Plan: Assessment: 42 yo female that is s/p resection of pituitary prolactinoma surgery #4 Plan: -s/p pituitary tumor resection -doing fine this am- continues to feel better each day -CT head reviewed by Dr Blanco yesterday and looks good. -strict urine output monitoring -serum Na levels stable -urine SG and Na have been stable -encourage PO intake -no straw or blowing nose for 6 weeks -Dr Green removed nasal packing -Dr Muniz from Endocrine will set up outpt follow up -d/w Dr Blanco -Dispo- DC home today -call NS with any changes or issues (high urine output) Subjective: Doing well this AM. no new complaints. Ambulatory this AM Objective: AAO x 3, PERRLA/EOMI no droop CN 2-12 grossly intact +lt touch 5/5 BUE/BLE = No nasal discharge = Objective: Vital Signs Temp Pulse Resp BP Pulse Ox 36.8 C 88 18 107/72 94 05/12/18 23:29 05/12/18 23:29 05/12/18 23:29 05/12/18 23:29 05/12/18 23:29 Laboratory Results 05/11/18 04:50 05/12/18 05/13/18 05/14/18 05:59 05:59 05:59 Intake Total 2180 850 Output Total 2950 628 Balance -770 222 ICD10 Worksheet Patient Problems: Problems Problem Status Onset Pituitary tumor Acute Headache Acute
[2018-05-13 08:05] VITALS: BP 129/90
[2018-05-13] MEDS: METHOCARBAMOL 750 MG TAB PO PRN ×3 (09:18→15:31)
[2018-05-13] MEDS: ESCITALOPRAM OXALATE 10 MG TAB PO SCH (09:18)
[2018-05-13] MEDS: FAMOTIDINE 20 MG TAB PO SCH (09:19)
[2018-05-13] MEDS: SENNOSIDES/DOCUSATE SODIUM TAB PO SCH (09:19)
[2018-05-13] MEDS: GABAPENTIN 300 MG CAP PO SCH ×2 (09:19→15:31)
[2018-05-13] MEDS: ALPRAZolam 1 MG TAB PO SCH ×2 (09:19→15:30)
[2018-05-13] MEDS: oxyCODONE IR 5 MG TAB PO PRN ×2 (09:22→15:30)
--- NOTE | 2018-05-13 12:08 | ASMTLACE ---
LEXISE Length of stay for Answers: 4-6 days current admission Acuity / Level of Answers: Yes Care: Did the patient have an inpatient admission? Comorbidities - select Answers: Any tumor (including all that apply lymphoma or leukemia) Opioid dependence / Chronic pain # of Emergency department Answers: 1-2 visits in the last 6 months Social determinants Answers: Mental health diagnosis (anxiety, depression, pers onality disorders, etc.) Score: 17 Date Signed: 05/13/2018 12:07 PM Electronically Signed By:MARYANNE Peña
[2018-05-13] MEDS: ONDANSETRON DISINTEGRATING 4 MG TAB PO PRN ×2 (12:30→15:29)
--- NOTE | 2018-05-13 12:51 | ASMTCMCOM ---
CM Note CM Note Notes: Pt medically stable for d/c with [facility] and supervision from family. Left voicemail for nsg PA Demarco for interagency transfer of care, this still needs to be sent to [facility]. Date Signed: 05/13/2018 12:50 PM Electronically Signed By:MARYANNE Peña
--- NOTE | 2018-05-13 15:34 | PDIAF ---
- Diagnosis Code Status: Full Code - Medication Management Discharge Medications: Medications to Continue on Transfer ALPRAZolam [Xanax 1 MG (*)] 1 mg PO TID PRN 09/16/17 [Last Taken 05/08/18 15:00] Acetaminophen [Tylenol ES 500 mg (*)] 1,000 mg PO Q6HRS PRN 09/16/17 [Last Taken 09/16/17 07:00] Zolpidem Tartrate [Ambien 5MG (*)] 5 mg PO HS 09/16/17 [Last Taken 05/08/18] Albuterol [Proventil Inhaler HFA (*)] 1 - 2 puffs IH DAILY PRN 05/09/18 [Last Taken Unknown] Baclofen [Baclofen 10 mg (*)] 10 mg PO TID PRN 05/09/18 [Last Taken Unknown] Butalb/Acetaminophen/Caffeine [Hovbcb-Ylknkbzr-Vpog 50-325-40] 1 each PO DAILY PRN 05/09/18 [Last Taken Unknown] Calcium Carbonate [Tums 500MG (*)] 500 mg PO DAILY PRN 05/09/18 [Last Taken Unknown] Cholecalciferol Vit D3 [Vitamin D3 (*)] 5,000 units PO DAILY 05/09/18 [Last Taken 05/08/18] Escitalopram Oxalate [Lexapro 10 MG] 10 mg PO DAILY 05/09/18 [Last Taken 04:30] Prochlorperazine Maleate [Compazine 10mg (*)] 10 mg PO TID PRN 05/09/18 [Last Taken Unknown] Rizatriptan Benzoate [Maxalt] 10 mg PO DAILY PRN 05/09/18 [Last Taken Unknown] Topiramate [Topamax 25MG (*)] 50 mg PO BID 05/09/18 [Last Taken 3 Weeks Ago ~02/28] oxyCODONE IR [Oxycodone Ir (*)] 5 - 10 mg PO Q6HRS PRN 05/09/18 [Last Taken 15:00] ALPRAZolam [Xanax 1 MG (*)] 1 mg PO TID tab 05/13/18 [Last Taken Unknown] Acetaminophen [Tylenol 325mg (*)] 650 mg PO Q4HRS PRN tab 05/13/18 [Last Taken Unknown] Gabapentin [Neurontin 300 MG (*)] 300 mg PO TID #60 cap 05/13/18 [Last Taken Unknown] Ibuprofen [Motrin (*)] 800 mg PO Q6HRS tab 05/13/18 [Last Taken Unknown] Methocarbamol [Robaxin 750 mg (*)] 750 mg PO TID PRN #60 tab 05/13/18 [Last Taken Unknown] Ondansetron Odt [Zofran Odt 4 mg (*)] 4 - 8 mg PO Q6HRS PRN #30 tab 05/13/18 [ Last Taken Unknown] Polyethylene Glycol 3350 [Miralax 17 gm (*)] 17 gm PO DAILY PRN pkt 05/13/18 [ Last Taken Unknown] Sennosides/Docusate Sodium [Senokot-S] 1 - 2 tab PO BID tab 05/13/18 [Last Taken Unknown] oxyCODONE IR [Oxycodone Ir (*)] 5 - 10 mg PO Q6HRS PRN #60 tab 05/13/18 [Last Taken Unknown] Discharge Medications: Refer to the Discharge Home Medication list for PRN reason. - Orders Services needed: Physical Therapy, Occupational Therapy Diet Recommendation: no restrictions on diet Diet Texture: Regular Texture Diet Additional Instructions: no blowing nose, no straw use call [phone] for post op appt with Dr Blanco or questions/concerns [facility] - Follow Up Care Current Providers and Referrals: William Blanco MD [Medical Doctor] - ELPIDIO LOCKHART [Primary Care Provider] -
== END 2018-05-13 17:04 | disposition home or self-care (01) | DRG 615 ==
LOC: F1N 05:18 → F2N 09:25 → F3N 05-12 13:47
PROVIDERS: ADMIT Neurological Surgery; ATTEND Neurological Surgery
PROC: 09TL8ZZ Resection of Nasal Turbinate, Via Natural or Artificial Opening Endoscopic (ICD-10-PCS; 2018-05-09)
PROC: 0GB00ZZ Excision of Pituitary Gland, Open Approach (ICD-10-PCS; principal; 2018-05-09 07:15)
DX: D35.2 Benign neoplasm of pituitary gland (principal); Z86.011 Personal history of benign neoplasm of the brain; J45.909 Unspecified asthma, uncomplicated
CPT/HCPCS: 97112-GP; 97116-GP; 97162-GP; 97166-GO; 97530-GO; 97535-GO; A9585; G0515-GO; G8987-GO-CI; G8988-GO-CI; G8989-GO-CI; J0171; J0690; J1170; J1720; J2060; J2250; J2270; J2405; J2550; J2704; J3010; J3360; Q9968